=== PATIENT | male | born 1960 ===

== ENCOUNTER 2023-06-14 08:11 | Outpatient (AMB) | payer OTHER, SELFPAY ==
--- NOTE | 2023-06-14 08:32 | MHC.PC.OV ---
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: No Accompanied by: Self / Same As Patient Allergies duloxetine [Cymbalta] Allergy (Unknown, Verified 06/14/23 08:35) suicidal ideation metformin Allergy (Unknown, Verified 06/14/23 08:35) rash Tobacco use date assessed: 09/06/22 Dental Screening Dental Screen Date: 06/14/23 Did you have a dental visit in the last 12 months?: No Did you have a dental problem in the last 6 months where you did not have access to dental care?: No Was dental information given to patient?: Patient has dentist HPI 3 month f/u HPI Details 62-year-old obese male with uncontrolled diabetes mellitus hypertension hypercholesterolemia hypothyroidism last seen in February 2023. Patient is up-to-date with colonoscopy. Patient did have blood work done May 2023 with creatinine at 1.3 normal blood sugar here liver numbers are normal LDL of 81 triglyceride of 227 normal PSa normal thyroid with normal blood count. Patient also has followed up with urology for hypogonadism and erectile dysfunction placed on testosterone IM every 2 weeks. patient underwent distal transverse colon segmental resection last month for a large tubular adenoma with high-grade dysplasia in August 2022 patient also was given sildenafil. January 2023 hemoglobin A1c of 6.8 PFSH Medical History (Updated 06/14/23 @ 09:10 by Cruz Yi MD) Adenoma of left adrenal gland Tubular adenoma of colon Upper respiratory infection Colon cancer screening Obesity (BMI 30-39.9) Fatty liver Diabetic neuropathy Hypothyroid Osteoarthritis of knee Hypogonadism Hypercholesterolemia Hypertension Type 2 diabetes mellitus with hyperglycemia Surgical History History of arthroplasty History of surgical removal of meniscus of knee History of thyroidectomy Family History (Updated 06/14/23 @ 08:36 by DANELLE Rivera) Father Myocardial infarction Mother Cancer of lymphatic and hematopoietic tissue Daughter In good health Sister In good health Brother In good health Myocardial infarction Paternal Grandfather Myocardial infarction Social History Housing: House Alcohol intake: current Alcohol intake frequency: holidays/special occasions only Patient Tobacco Use Status: Never used Tobacco e-Cigarette/Vaping Use: Never Used Second Hand Smoke Exposure: No service: No Current occupational status: employed Current occupational exposures/hazards: No Cognitive needs: No Hearing needs: No Vision needs: Yes Questionnaire Thrive Questionnaire Date Thrive assessed: 09/28/22 TANIA-7 AMB Questionnaire TANIA-7 Date TANIA - 7 assessed: 02/26/23 Source: Developed by Drs. Hubert Hernandez, Kay Pitts, Kirk Noel and colleagues, with an educational radha from [employer]. Physical exam (Primary Care) Vital Signs: Last Vital Signs Pulse 86 06/14/23 08:34 BP 112/80 06/14/23 08:34 Pulse Ox 96 06/14/23 08:34 Oxygen Delivery Method Room Air 06/14/23 08:34 BMI result Body Mass Index 35.2 Tobacco/Smoking Status: Tobacco use Status Tobacco use date assessed 09/06/22 06/14/23 08:32 Patient Tobacco Use Status Never used Tobacco 06/14/23 08:32 Tobacco use type 06/14/23 08:39 e-Cigarette/Vaping Use Never Used 06/14/23 08:32 Thrive Assessment: Date of Thrive Assessment Date Thrive assessed 09/28/22 06/14/23 08:32 Const General: alert; No acute distress Eyes Conjunctivae: conjunctivae normal Resp Auscultation: clear to auscultation bilaterally Cardio Rate: regular rate Rhythm: regular rhythm GI Inspection: Yes normal to inspection Extrem General: Yes normal to inspection and No edema Results AMB Hemoglobin A1c AMB Hemoglobin A1c 6.9 % Last Edit by DANELLE Rivera on 06/14/23 08:45 Results Reviewed Results Reviewed: Laboratory Last Values Hgb A1c (Clinic) 6.9 % (4.0-6.0) H 06/14/23 08:32 Assessment and Plan Assessment & Plan (1) Type 2 diabetes mellitus with hyperglycemia: Comment: [facility] 11/2022 Code(s): E11.65 - Type 2 diabetes mellitus with hyperglycemia Qualifiers: Diabetes mellitus care home insulin use: without care home use Qualified Code(s): E11.65 - Type 2 diabetes mellitus with hyperglycemia Plan: Decrease the amount of carbohydrate intake, pasta, bread, rice and potatoes are all sugar and that is aside from all the sweet stuff, remember that fruits are good but they are Sweet also. Hemoglobin A1c goal of less than 6.5 patient takes glipizide 10 mg twice a day Trulicity at 1.5 mg once a week and Jardiance 25 mg once a day (2) Hypertension: Code(s): I10 - Essential (primary) hypertension Qualifiers: Hypertension type: essential hypertension Qualified Code(s): I10 - Essential (primary) hypertension Plan: Continue with blood pressure medication. Decrease salt intake and exercise patient is on amlodipine 5 mg once a day lisinopril 30 mg once a day and metoprolol 25 mg once a day (3) Hypercholesterolemia: Code(s): E78.00 - Pure hypercholesterolemia, unspecified Plan: Avoid fried foods, chicken skin, eggs, butter margarine, pastries and meat. Be it pork or beef they have a lot of cholesterol LDL goal of less than 100 and triglyceride of less than 150. Patient on rosuvastatin 20 mg once a day and fenofibrate 145 mg once a day (4) Tubular adenoma of colon: Comment: June 2022 [facility], high grade dysplasia August 2022Unresectable splenic flexure polyp tubular adenoma with high-grade dysplasia status post laparoscopic assisted segmental colectomy with primary colocolonic anastomosis 09/12/2022 Code(s): D12.6 - Benign neoplasm of colon, unspecified Plan: colon test 09/2022 (5) Obesity (BMI 30-39.9): Code(s): E66.9 - Obesity, unspecified Plan: Diet and exercise (6) Hypothyroid: Comment: Thyroidectomy nodule 2018 no cancer Code(s): E03.9 - Hypothyroidism, unspecified Qualifiers: Hypothyroidism type: acquired Qualified Code(s): E03.9 - Hypothyroidism, unspecified Plan: Continue with thyroid medication March 2023 last blood (7) Hypogonadism: Plan: Patient follows up with urology placed on testosterone IM (8) Erectile dysfunction: Code(s): N52.9 - Male erectile dysfunction, unspecified Plan: Follows up with urology placed on sildenafil Orders: Orders AMB Hemoglobin A1c Today E11.65 - Type 2 diabetes mellitus with hyperglycemia Medications: New dapagliflozin propanediol (Farxiga) 10 mg PO DAILY 90 tabs 3RF E11.65 - Type 2 diabetes mellitus with hyperglycemia Changed From dulaglutide (Trulicity) 1.5 mg (0.5 mL) subcut QWEEK 6 mL 3RF E11.65 - Type 2 diabetes mellitus with hyperglycemia To dulaglutide 3 mg (0.5 mL) subcut QWEEK 30 days 2.5 mL 3RF E11.65 - Type 2 diabetes mellitus with hyperglycemia Discontinued empagliflozin Discontinued Reason: Insurance Denied 25 mg PO DAILY 90 days 90 tabs 2RF E11.65 - Type 2 diabetes mellitus with hyperglycemia Coding Level of Care Code Est Pt Level 4 (80907) Diagnoses Type 2 diabetes mellitus with hyperglycemia, without long-term current use of insulin E11.65 Diabetes mellitus care home insulin use: without watermelon inspector use Essential hypertension I10 Hypertension type: essential hypertension Hypercholesterolemia E78.00 Tubular adenoma of colon D12.6 Obesity (BMI 30-39.9) E66.9 Acquired hypothyroidism E03.9 Hypothyroidism type: acquired Hypogonadism Erectile dysfunction N52.9
[2023-06-14 08:34] VITALS: BP 112/80; PULSE 86; O2SAT 96; BMI 35.2
== END 2023-06-14 09:17 | disposition home or self-care (01) ==
PROVIDERS: PCP Internal Medicine; Visit Provider Internal Medicine
DX: E11.65 Type 2 diabetes mellitus with hyperglycemia (principal); I10 Essential (primary) hypertension; E78.00 Pure hypercholesterolemia, unspecified; D12.6 Benign neoplasm of colon, unspecified; E66.9 Obesity, unspecified; E03.9 Hypothyroidism, unspecified; N52.9 Male erectile dysfunction, unspecified; Z68.35 Body mass index [BMI] 35.0-35.9, adult
CPT/HCPCS: 83036; 99214

== ENCOUNTER → 2023-09-14 11:09 | Outpatient (BNV) | payer OTHER, SELFPAY | PROVIDERS: PCP Internal Medicine; Visit Provider Internal Medicine Medical Oncology | DX: D75.1 Secondary polycythemia (principal) | CPT/HCPCS: 99204; 99213 ==

== ENCOUNTER 2023-09-17 08:04 | Outpatient (REF) | payer OTHER, SELFPAY | END 2023-09-17 08:05 | disposition home or self-care (01) | LOC: HO.BBR 08:04 | PROVIDERS: Visit Provider Internal Medicine Medical Oncology | DX: D75.1 Secondary polycythemia (principal) | CPT/HCPCS: 85018; 99195 ==

== ENCOUNTER 2023-09-18 12:36 | Outpatient (AMB) | payer OTHER, SELFPAY ==
[2023-09-18 12:38] VITALS: BP 130/90; PULSE 81; O2SAT 96; BMI 34.9
--- NOTE | 2023-09-18 12:38 | A.OFFPC_ITS ---
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: No Allergies duloxetine [Cymbalta] Allergy (Unknown, Verified 09/18/23 12:46) suicidal ideation metformin Allergy (Unknown, Verified 09/18/23 12:46) rash Medication List - Last Reconciled 09/18/23 by Cruz Yi MD amlodipine 5 mg PO DAILY 90 days cyanocobalamin (vitamin B-12) 1,000 mcg PO DAILY dapagliflozin propanediol (Farxiga) 10 mg PO DAILY dulaglutide 3 mg (0.5 mL) subcut QWEEK 30 days fenofibrate nanocrystallized 145 mg PO DAILY flash glucose scanning reader (MicroVisionStyle Yoselin 14 Day [place]) As directed flash glucose sensor (FreeStyle Yoselin 14 Day Sensor kit) As directed fluticasone propionate 50 mcg/actuation 2 sprays intranasal DAILY glipizide 10 mg PO BID levothyroxine (Synthroid) 137 mcg PO DAILY lisinopril 30 mg PO BID 90 days metoprolol succinate ER 25 mg PO DAILY 90 days rosuvastatin (Crestor) 20 mg PO DAILY testosterone cypionate 200 mg IM Q2W Tobacco use date assessed: 09/18/23 Fall risk assessment: No Falls in past year Last assessed Fall Risk: 09/18/23 Dental Screening Dental Screen Date: 09/18/23 HPI Annual Exam HPI Details 63-year-old obese male with diabetes shannon litus hypertension hypercholesterolemia hypothyroidism hypogonadism coming in for physical exam. Last seen in May 2023. Patient has erythrocytosis and follows up with Hematology-Oncology secondary polycythemia most likely from the hormone does go to the blood bank for therapeutic phlebotomy.. Hematology oncology notes workup being done advised aspirin for antiplatelet. EGD 10/22/2023, eye exam 11/2023 [facility]. LAB work 05/2023 [facility] Medical History (Updated 09/14/23 @ 11:55 by Marilou Ambrocio MD) Adenoma of left adrenal gland Tubular adenoma of colon Upper respiratory infection Colon cancer screening Obesity (BMI 30-39.9) Fatty liver Diabetic neuropathy Hypothyroid Osteoarthritis of knee Hypogonadism Hypercholesterolemia Hypertension Type 2 diabetes mellitus with hyperglycemia Surgical History History of arthroplasty History of surgical removal of meniscus of knee History of thyroidectomy Family History (Updated 09/14/23 @ 11:16 by Joanie Baez) Father Myocardial infarction Melanoma Mother Cancer of lymphatic and hematopoietic tissue Daughter In good health Sister In good health Brother In good health Myocardial infarction Paternal Grandfather Myocardial infarction Social History (Updated 09/18/23 @ 13:10 by Cruz Yi MD) Household Members: Family Housing: House Alcohol intake: current Alcohol intake frequency: holidays/special occasions only Comment: once a year 1 glass Patient Tobacco Use Status: Never used Tobacco e-Cigarette/Vaping Use: Never Used Second Hand Smoke Exposure: No service: Yes Current occupational status: employed Current occupational exposures/hazards: No Cognitive needs: No Hearing needs: No Vision needs: Yes Questionnaire PHQ-9 Over the last 2 weeks, how often have you been bothered by any of the following problems? 1. Little interest or pleasure in doing things: not at all 2. Feeling down, depressed, or hopeless: not at all 3. Trouble falling or staying asleep, or sleeping too much: not at all 4. Feeling tired or having little energy: not at all 5. Poor appetite or overeating: not at all 6. Feeling bad about yourself - or that you are a failure or have let yourself or your family down: not at all 7. Trouble concentrating on things, such as reading the newspaper or watching television: not at all 8. Moving or speaking so slowly that other people could have noticed. Or the opposite - being so fidgety or restless that you have been moving around a lot more than usual: not at all 9. Thoughts that you would be better off or of hurting yourself in some way: not at all Total score: 0 Depression Screening Interpretation: Negative Depression Screening Done: Yes Source: Developed by Drs. Hubert Hernandez, Kay Pitts, Kirk Noel and colleagues, with an educational radha from [email or web address]. Thrive Questionnaire Date Thrive assessed: 09/18/23 TANIA-7 AMB Questionnaire TANIA-7 Date TANIA - 7 assessed: 09/18/23 Feeling nervous, anxious, or on edge: 0 = Not at all Not being able to stop or control worryin = Not at all Worrying too much about different things: 0 = Not at all Trouble relaxin = Not at all Being so restless that it is hard to sit still: 0 = Not at all Becoming easily annoyed or irritable: 0 = Not at all Feeling afraid as if something awful might happen: 0 = Not at all Total TANIA-7 score (0-4 normal; 5-9 mild; 10-14 moderate; 15-21 severe): 0 Source: Developed by Drs. Hubert Hernandez, Kay Pitts, Kirk Noel and colleagues, with an educational radha from [email or web address]. Review of Systems Const Denies poor appetite and Denies weakness Eyes Denies no additional complaints ENT Reports Normal hearing present, Denies dizziness, Denies nasal congestion, Denies tinnitus and Denies sore throat Card Denies chest pain, Denies syncope, Denies rapid heart rate and Denies dyspnea Resp Denies cough and Denies dyspnea GI Denies change in stool character, Reports constipation, Denies diarrhea, Denies nausea and Denies vomiting Denies dysuria and Denies urinary frequency Neuro Reports Normal hearing present, Denies confusion, Denies dizziness, Denies syncope and Denies weakness Psych Denies confusion Physical exam (Primary Care) Vital Signs: Last Vital Signs Pulse 81 09/18/23 12:38 BP 130/90 H 09/18/23 12:38 Pulse Ox 96 09/18/23 12:38 Oxygen Delivery Method Room Air 09/18/23 12:38 BMI result Body Mass Index 34.9 Tobacco/Smoking Status: Tobacco use Status Tobacco use date assessed 09/18/23 09/18/23 12:39 Patient Tobacco Use Status Never used Tobacco 09/18/23 13:10 Tobacco use type 06/14/23 09:17 e-Cigarette/Vaping Use Never Used 09/18/23 13:10 PHQ-9: PHQ-9 Score PHQ-9: Total score 0 09/18/23 13:01 Depression Screening Interpretation: Negative Thrive Assessment: Date of Thrive Assessment Date Thrive assessed 09/18/23 09/18/23 12:39 Const General: No confusion Orientation/consciousness: No confusion HENMT Head: Yes normocephalic Ears: external ears normal and TM's normal bilaterally Face and sinus: Yes normal facial exam Mouth: moist mucous membranes Throat: Yes tonsils normal Eyes Conjunctivae: conjunctivae normal Pupils: Equal, round and reactive pupils present and Pupil accommodation reflex normal Direct Ophthalmoscopy: normal light reflex Neck Neck: No lymphadenopathy Thyroid: Thyroid normal Chest Chest palpation & inspection: normal inspection of the chest Resp Effort & Inspection: normal respiratory effort and no audible wheezes Auscultation: clear to auscultation bilaterally, no crackles, no wheezes and lung sounds not diminished Cardio Rate: regular rate Rhythm: regular rhythm Peripheral pulses: radial pulses present and dorsalis pedis present GI Other: faint guiac positive prostate N, pedal pulse N and pin prick areas of neuropathy Palpation (GI): no masses Auscultation: normal bowel sounds and normoactive bowel sounds Male General Exam: Yes normal external exam Skin General skin exam: no rashes or lesions noted Rashes: no rashes Neuro General: No confusion Cranial nerves: Yes Equal, round and reactive pupils present and Yes Normal hearing present Cognition (Neuro): normal cognition Gait exam (Neuro): Normal gait present Motor exam (neuro): 5/5 motor strength present throughout Deep tendon reflexes (DTR's): Right brachioradialis reflex intensity grade: 2+, Left brachioradialis reflex intensity grade: 2+, Right patellar reflex intensity grade: 2+ and Left patellar reflex intensity grade: 2+ Extrem General: No edema Results AMB Hemoglobin A1c AMB Hemoglobin A1c 7.5 % Last Edit by DANELLE Antonio on 09/18/23 12:53 Results Reviewed Results Reviewed: Laboratory Last Values Hgb A1c (Clinic) 7.5 % (4.0-6.0) H 09/18/23 12:40 Assessment and Plan Assessment & Plan (1) Annual physical exam: Code(s): Z00.00 - Encounter for general adult medical examination without abnormal findings (2) Type 2 diabetes mellitus with hyperglycemia: Comment: [facility] 11/2022 Code(s): E11.65 - Type 2 diabetes mellitus with hyperglycemia Qualifiers: Diabetes mellitus 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 Hemoglobin A1c goal of less than 6.5. Patient on Trulicity glipizide and Farxiga. Problem of elevated A1c still, discussed with the patient that we can try changing the Trulicity to Mounjaro to see if it will be more effective in lowering down the hemoglobin A1c.. (3) Hypertension: Code(s): I10 - Essential (primary) hypertension Qualifiers: Hypertension type: essential hypertension Qualified Code(s): I10 - Essential (primary) hypertension Plan: Continue with blood pressure medication. Decrease salt intake and exercise lisinopril 30 mg once a day metoprolol 25 mg once a day amlodipine 5 mg once a day. BP high today (4) Hypercholesterolemia: Code(s): E78.00 - Pure hypercholesterolemia, unspecified Plan: Avoid fried foods, chicken skin, eggs, butter margarine, pastries and meat. Be it pork or beef they have a lot of cholesterol LDL goal of less than 100 and triglyceride of less than 150 patient on fenofibrate 145 mg once a day and rosuvastatin 20 mg once a day (5) Hypothyroid: Comment: Thyroidectomy nodule 2018 no cancer Code(s): E03.9 - Hypothyroidism, unspecified Qualifiers: Hypothyroidism type: acquired Qualified Code(s): E03.9 - Hypothyroidism, unspecified Plan: Continue with thyroid medication (6) Obesity (BMI 30-39.9): Code(s): E66.9 - Obesity, unspecified Plan: Diet and exercise (7) Erythrocytosis: Comment: Secondary to hormone therapy Code(s): D75.1 - Secondary polycythemia Plan: Patient sees Hematology Oncology and having therapeutic phlebotomy (8) Hypogonadism: Plan: On testosterone Orders: Orders AMB Hemoglobin A1c Today E11.65 - Type 2 diabetes mellitus with hyperglycemia Medications: New tirzepatide (Mounjaro) 5 mg (0.5 mL) subcut QWEEK 2 mL 1RF E11.65 - Type 2 diabetes mellitus with hyperglycemia Discontinued dulaglutide Discontinued Reason: Doctor's Order 3 mg (0.5 mL) subcut QWEEK 30 days 2.5 mL 3RF E11.65 - Type 2 diabetes mellitus with hyperglycemia Coding Level of Care Code Est Pt Prev Care 40-64y(49386) Diagnoses Annual physical exam Z00.00 Type 2 diabetes mellitus with hyperglycemia, without long-term current use of insulin E11.65 Diabetes mellitus group home insulin use: without group home use Essential hypertension I10 Hypertension type: essential hypertension Hypercholesterolemia E78.00 Acquired hypothyroidism E03.9 Hypothyroidism type: acquired Obesity (BMI 30-39.9) E66.9 Erythrocytosis D75.1 Hypogonadism
== END 2023-09-18 13:34 | disposition home or self-care (01) ==
PROVIDERS: Visit Provider Internal Medicine
DX: Z00.00 Encounter for general adult medical examination without abnormal findings (principal); E11.65 Type 2 diabetes mellitus with hyperglycemia; I10 Essential (primary) hypertension; E78.00 Pure hypercholesterolemia, unspecified; E03.9 Hypothyroidism, unspecified; D75.1 Secondary polycythemia
CPT/HCPCS: 83036; 99396

== ENCOUNTER 2023-12-17 07:58 | Outpatient (REF) | payer OTHER, SELFPAY | END 2023-12-17 07:59 | disposition home or self-care (01) | LOC: HO.BBR 07:58 | PROVIDERS: PCP Internal Medicine; Visit Provider Internal Medicine Medical Oncology | DX: D75.1 Secondary polycythemia (principal) | CPT/HCPCS: 85018; 99195 ==

== ENCOUNTER 2023-12-25 08:19 | Outpatient (AMB) | payer OTHER, SELFPAY ==
[2023-12-25 08:30] VITALS: BP 128/80; PULSE 77; O2SAT 98; BMI 33.6
--- NOTE | 2023-12-25 08:30 | MHC.PC.OV ---
Vital Signs 12/25/23 08:30 Height 5 ft 10 in Weight 234 lb BMI 33.6 BP 128/80 Blood Pressure Location Lt brachial Position Standing Pulse 77 Pulse Source Pulse Oximeter Pulse Oximetry (%) 98 Oxygen Delivery Method Room Air Intake Visit Reasons: dm Allergies duloxetine [Cymbalta] Allergy (Unknown, Verified 12/25/23 08:31) suicidal ideation metformin Allergy (Unknown, Verified 12/25/23 08:31) rash Tobacco use date assessed: 09/18/23 Fall risk assessment: No Falls in past year Last assessed Fall Risk: 12/25/23 Dental Screening Dental Screen Date: 09/18/23 HPI dm HPI Details 63-year-old obese male with controlled diabetes mellitus hypertension hypercholesterolemia hypothyroidism coming in for follow-up. Last seen in August 2023 for physical exam. Patient is up-to-date with colonoscopy June 2022 does have erythrocytosis having therapeutic phlebotomy patient has hypogonadism and on testosterone injections. And was advised to take aspirin baby. Patient is up-to-date with eye exam October 2023 no retinopathy has early cataract in October 2023 patient had home sleep study showing moderate obstructive sleep apnea with an AHI of 26.1 advised auto PAP 10-20 cm water. Patient also has seen Urology testosterone cypionate 200 milligrams/cc IM 1 cc every 2 weeks. LDL 80 05/27/2023. colon test coming this year. [facility] Medical History (Updated 12/25/23 @ 08:59 by Cruz Yi MD) Adenoma of left adrenal gland Tubular adenoma of colon Upper respiratory infection Colon cancer screening Obesity (BMI 30-39.9) Fatty liver Diabetic neuropathy Hypothyroid Osteoarthritis of knee Hypogonadism Hypercholesterolemia Hypertension Type 2 diabetes mellitus with hyperglycemia Surgical History History of arthroplasty History of surgical removal of meniscus of knee History of thyroidectomy Family History Father Myocardial infarction Melanoma Mother Cancer of lymphatic and hematopoietic tissue Daughter In good health Sister In good health Brother In good health Myocardial infarction Paternal Grandfather Myocardial infarction Social History Household Members: Family Housing: House Alcohol intake: current Alcohol intake frequency: holidays/special occasions only Comment: once a year 1 glass Patient Tobacco Use Status: Never used Tobacco e-Cigarette/Vaping Use: Never Used Second Hand Smoke Exposure: No service: Yes Current occupational status: employed Current occupational exposures/hazards: No Cognitive needs: No Hearing needs: No Vision needs: Yes Questionnaire PHQ-9 Over the last 2 weeks, how often have you been bothered by any of the following problems? 1. Little interest or pleasure in doing things: not at all 2. Feeling down, depressed, or hopeless: not at all 3. Trouble falling or staying asleep, or sleeping too much: not at all 4. Feeling tired or having little energy: not at all 5. Poor appetite or overeating: not at all 6. Feeling bad about yourself - or that you are a failure or have let yourself or your family down: not at all 7. Trouble concentrating on things, such as reading the newspaper or watching television: not at all 8. Moving or speaking so slowly that other people could have noticed. Or the opposite - being so fidgety or restless that you have been moving around a lot more than usual: not at all 9. Thoughts that you would be better off or of hurting yourself in some way: not at all Total score: 0 Depression Screening Interpretation: Negative Depression Screening Done: Yes Source: Developed by Drs. Hubert Hernandez, Kirk Brooks and colleagues, with an educational radha from [employer]. Thrive Questionnaire Date Thrive assessed: 09/18/23 AUDIT C Alcohol Use Questionnaire (AUDIT-C) 1. How often do you have a drink containing alcohol?: Never 3. How often do you have six or more drinks on one occasion?: Never Total Score: 0 TANIA-7 AMB Questionnaire TANIA-7 Date TANIA - 7 assessed: 09/18/23 Source: Developed by Kay Kilgore Kurt Kroenke and colleagues, with an educational radha from [employer]. Physical exam (Primary Care) Vital Signs: Last Vital Signs Pulse 77 12/25/23 08:30 BP 128/80 12/25/23 08:30 Pulse Ox 98 12/25/23 08:30 Oxygen Delivery Method Room Air 12/25/23 08:30 BMI result Body Mass Index 33.6 Tobacco/Smoking Status: Tobacco use Status Tobacco use date assessed 09/18/23 12/25/23 08:33 Patient Tobacco Use Status Never used Tobacco 12/25/23 08:33 Tobacco use type 06/14/23 09:17 e-Cigarette/Vaping Use Never Used 12/25/23 08:33 PHQ-9: PHQ-9 Score PHQ-9: Total score 0 12/25/23 08:50 Depression Screening Interpretation: Negative Thrive Assessment: Date of Thrive Assessment Date Thrive assessed 09/18/23 12/25/23 08:33 Const General: alert; No acute distress Eyes Conjunctivae: conjunctivae normal Resp Auscultation: clear to auscultation bilaterally Cardio Rate: regular rate Rhythm: regular rhythm GI Inspection: Yes normal to inspection Extrem General: Yes normal to inspection and No edema Results AMB Hemoglobin A1c AMB Hemoglobin A1c 6.2 % Last Edit by Kymberly Mariscal CMA on 12/25/23 08:50 Results Reviewed Results Reviewed: Laboratory Last Values Hgb A1c (Clinic) 6.2 % (4.0-6.0) H 12/25/23 08:33 Assessment and Plan Assessment & Plan (1) Moderate obstructive sleep apnea: Comment: Sleep study done 11/01/2023 results showing obstructive sleep apnea moderate with AHI of 21.1 advised auto CPAP 10-20 cm water Code(s): G47.33 - Obstructive sleep apnea (adult) (pediatric) Plan: Continue to use the CPAP more than 4 hours a night and benefits from this. (2) Erythrocytosis: Comment: Secondary to hormone therapy Code(s): D75.1 - Secondary polycythemia Plan: Patient is being followed by hematology oncology and has therapeutic phlebotomy. 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 Hemoglobin A1c goal of less than 6.5. Patient on Farxiga 10 mg once a day Trulicity 3 mg once a week glipizide 10 mg twice a day (5) Hypertension: Code(s): I10 - Essential (primary) hypertension Qualifiers: Hypertension type: essential hypertension Qualified Code(s): I10 - Essential (primary) hypertension Plan: Continue with blood pressure medication. Decrease salt intake and exercise takes lisinopril 30 mg twice a day metoprolol 25 mg once a day and amlodipine 5 mg once a day (6) Hypercholesterolemia: Comment: May 2023 LDL is 81 Code(s): E78.00 - Pure hypercholesterolemia, unspecified Plan: Avoid fried foods, chicken skin, eggs, butter margarine, pastries and meat. Be it pork or beef they have a lot of cholesterol LDL goal of less than 100 and triglyceride of less than 150. May 2023 last blood work (7) Hypothyroid: Comment: Thyroidectomy nodule 2018 no cancer Code(s): E03.9 - Hypothyroidism, unspecified Qualifiers: Hypothyroidism type: acquired Qualified Code(s): E03.9 - Hypothyroidism, unspecified Plan: Continue with thyroid medication (8) Obesity (BMI 30-39.9): Code(s): E66.9 - Obesity, unspecified Plan: Diet and exercise Orders: Orders AMB Hemoglobin A1c Today Z13.9 - Encounter for screening, unspecified Medications: New aspirin (Adult Low Dose Aspirin) 81 mg PO DAILY 30 tabs 0RF Refilled fluticasone propionate 50 mcg/actuation administer into each nostril 2 sprays intranasal DAILY 16 grams 11RF Coding Level of Care Code Est Pt Level 4 (35825) Diagnoses Moderate obstructive sleep apnea G47.33 Erythrocytosis D75.1 Hypogonadism Type 2 diabetes mellitus with hyperglycemia, without long-term current use of insulin E11.65 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
== END 2023-12-25 09:13 | disposition home or self-care (01) ==
PROVIDERS: PCP Internal Medicine; Visit Provider Internal Medicine
DX: E11.65 Type 2 diabetes mellitus with hyperglycemia (principal); G47.33 Obstructive sleep apnea (adult) (pediatric); D75.1 Secondary polycythemia; I10 Essential (primary) hypertension; E78.00 Pure hypercholesterolemia, unspecified; E03.9 Hypothyroidism, unspecified
CPT/HCPCS: 83036; 99214

== ENCOUNTER 2024-02-12 14:59 | Outpatient (AMB) | payer OTHER, SELFPAY ==
--- NOTE | 2024-02-12 15:00 | A.OFFPC_ITS ---
Vital Signs 02/12/24 15:09 Height 5 ft 10 in Weight 230 lb BMI 33.0 BP 122/86 Blood Pressure Location Lt brachial Position Sitting Pulse 98 Pulse Source Pulse Oximeter Pulse Oximetry (%) 95 Oxygen Delivery Method Room Air Intake Visit Reasons: Cold Symptoms Intake Note: Dr. Yi's pt here for possible sinus infection for the past week. Mainstreaming Facilitator Required: No Accompanied by: Self / Same As Patient Allergies duloxetine [Cymbalta] Allergy (Unknown, Verified 02/12/24 15:11) suicidal ideation metformin Allergy (Unknown, Verified 02/12/24 15:11) rash Tobacco use date assessed: 09/18/23 Fall risk assessment: No Falls in past year Last assessed Fall Risk: 02/12/24 Dental Screening Dental Screen Date: 09/18/23 HPI Cold Symptoms HPI Details Patient is a 63-year-old male here today for a problem visit. Patient's past medical history significant for obstructive sleep apnea,. Type 2 diabetes, hypertension, hyperlipidemia and hypothyroidism. He reports he has been having sinus pressure and right ear pain over the last 10 days. Has been using allergy medication without much relief. He originally thought it was his allergies though has been having more greenish nasal discharge. [facility] Medical History Adenoma of left adrenal gland Tubular adenoma of colon Upper respiratory infection Colon cancer screening Obesity (BMI 30-39.9) Fatty liver Diabetic neuropathy Hypothyroid Osteoarthritis of knee Hypogonadism Hypercholesterolemia Hypertension Type 2 diabetes mellitus with hyperglycemia Surgical History History of arthroplasty History of surgical removal of meniscus of knee History of thyroidectomy Family History Father Myocardial infarction Melanoma Mother Cancer of lymphatic and hematopoietic tissue Daughter In good health Sister In good health Brother In good health Myocardial infarction Paternal Grandfather Myocardial infarction Social History Household Members: Family Housing: House Alcohol intake: current Alcohol intake frequency: holidays/special occasions only Comment: once a year 1 glass Patient Tobacco Use Status: Never used Tobacco e-Cigarette/Vaping Use: Never Used Second Hand Smoke Exposure: No service: Yes Current occupational status: employed Current occupational exposures/hazards: No Cognitive needs: No Hearing needs: No Vision needs: Yes Questionnaire Thrive Questionnaire Date Thrive assessed: 09/18/23 TANIA-7 AMB Questionnaire TANIA-7 Date TANIA - 7 assessed: 09/18/23 Source: Developed by Drs. Hubert Hernandez, Kay Pitts, Kirk Noel and colleagues, with an educational radha from [employer]. Review of Systems Const Denies headache(s) Eyes Denies loss of vision ENT Denies vertigo, Denies dizziness, Denies headache(s) and Denies sore throat Card Denies chest pain, Denies leg edema and Denies lightheadedness Resp Denies cough, Denies hemoptysis and Denies wheezing GI Denies abdominal pain, Denies melena, Denies constipation, Denies diarrhea and Denies vomiting Denies dysuria, Denies urinary frequency and Denies urinary urgency Musc Denies arthralgias, Denies joint swelling, Denies numbness and Denies tingling Neuro Denies Abnormal speech present, Denies behavioral changes, Denies vertigo, Den ies dizziness, Denies headache(s), Denies loss of vision, Denies memory loss, Denies numbness and Denies tingling Psych Denies anxiety, Denies behavioral changes, Denies depression, Denies memory loss and Denies panic attacks Vamshi/Lymph Denies easy bleeding and Denies easy bruising Aller/Immun Denies wheezing Physical exam (Primary Care) Tobacco/Smoking Status: Tobacco use Status Tobacco use date assessed 09/18/23 02/12/24 15:01 Patient Tobacco Use Status Never used Tobacco 02/12/24 15:01 Tobacco use type 06/14/23 09:17 e-Cigarette/Vaping Use Never Used 02/12/24 15:01 Thrive Assessment: Date of Thrive Assessment Date Thrive assessed 09/18/23 02/12/24 15:01 Const General: healthy appearing, no acute distress, alert and awake Nutritional Appearance: well nourished Orientation/consciousness: oriented to person, oriented to place and oriented to time HENMT Ears: TM's normal bilaterally General nose exam: Normal nasal mucous membranes and turbinates present Eyes Conjunctivae: conjunctivae normal Sclerae: sclerae normal Pupils: Equal, round and reactive pupils present Neck Neck: Yes no lymphadenopathy and Yes no JVD Thyroid: Thyroid normal Carotids: no bruits Resp Effort & Inspection: normal respiratory effort and not tachypneic Auscultation: no crackles, no rales, no rhonchi and no wheezes Cardio Rate: regular rate Rhythm: regular rhythm Heart sounds: no murmurs and normal S1 and S2 GI Palpation (GI): Soft to palpation, nontender, no hepatomegaly and no splenomegaly Auscultation: normal bowel sounds Skin General skin exam: no rashes or lesions noted and dry skin Neuro General: oriented to person, oriented to place and oriented to time Cranial nerves: Yes Equal, round and reactive pupils present Speech: No Abnormal speech present Gait exam (Neuro): Normal gait present Motor exam (neuro): no tremor noted Extrem Right upper extremity: full ROM Left upper extremity: full ROM Right lower extremity: full ROM; no edema Left lower extremity: full ROM; no edema Psych Mental Status: mental status grossly normal Speech and movement: Normal speech and movement present Affect: normal affect Attitude: cooperative Thought process: Normal thought process present Assessment and Plan Assessment & Plan (1) Sinus infection: Code(s): J32.9 - Chronic sinusitis, unspecified Qualifiers: Sinusitis location: frontal Chronicity: subacute Qualified Code(s): J01.10 - Acute frontal sinusitis, unspecified Plan: Patient's signs symptoms of sinus infection that has been lasting over the last 10 days.. Has tried [id number] allergy medication without much relief. Will supply patient with azithromycin Medications: New azithromycin For 250 mg dose pack: take 500 mg today (day 1), then 250 mg for 4 days (days 2-5) PO 6 tabs 0RF J01.10 - Acute frontal sinusitis, unspecified Coding Level of Care Code Est Pt Level 3 (27109) Diagnoses Subacute frontal sinusitis J01.10 Sinusitis location: frontal Chronicity: subacute
[2024-02-12 15:09] VITALS: BP 122/86; PULSE 98; O2SAT 95; BMI 33.0
== END 2024-02-12 15:20 | disposition home or self-care (01) ==
PROVIDERS: PCP Internal Medicine; Visit Provider Physician Assistant
DX: J01.10 Acute frontal sinusitis, unspecified (principal)
CPT/HCPCS: 99213

== ENCOUNTER 2024-03-17 08:04 | Outpatient (REF) | payer OTHER, SELFPAY | END 2024-03-17 08:05 | disposition home or self-care (01) | LOC: HO.BBR 08:04 | PROVIDERS: PCP Internal Medicine; Visit Provider Internal Medicine Medical Oncology | DX: E83.110 Hereditary hemochromatosis (principal) | CPT/HCPCS: 85014; 85018; 99195 ==

== ENCOUNTER 2024-05-02 08:15 | Outpatient (AMB) | payer OTHER, SELFPAY ==
--- NOTE | 2024-05-02 08:27 | MHC.PC.OV ---
Vital Signs 05/02/24 08:28 05/02/24 08:44 Height 5 ft 10 in Weight 232 lb 8 oz BMI 33.4 BP 140/80 H 130/90 H Blood Pressure Location Lt brachial Lt brachial Position Sitting Sitting Pulse 99 Pulse Source Pulse Oximeter Pulse Oximetry (%) 94 Oxygen Delivery Method Room Air Intake Visit Reasons: DM , DELANEY Intake Note: Patient is here to follow up on DM, DELANEY. 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 Patient has erythrocytosis most likely from the testosterone injections. Patient's colonoscopy is up-to-date 07/16/2022. Review of the notes neurology noted absence of ankle jerk. 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 This is compatible with a type of neuropathy seen in diabetes it does not show. We did receive the note also from 01/14/2024 colon test noted diverticulosis and hemorrhoids. [facility] Medical History (Updated 02/29/24 @ 18:11 by Cruz Yi MD) Adenoma of left adrenal gland Tubular adenoma of colon Upper respiratory infection Colon cancer screening Obesity (BMI 30-39.9) Fatty liver Diabetic neuropathy Hypothyroid Osteoarthritis of knee Hypogonadism Hypercholesterolemia Hypertension Type 2 diabetes mellitus with hyperglycemia Surgical History History of arthroplasty History of surgical removal of meniscus of knee History of thyroidectomy Family History Father Myocardial infarction Melanoma Mother Cancer of lymphatic and hematopoietic tissue Daughter In good health Sister In good health Brother In good health Myocardial infarction Paternal Grandfather Myocardial infarction Social History Household Members: Family Housing: House Alcohol intake: current Alcohol intake frequency: holidays/special occasions only Comment: once a year 1 glass Patient Tobacco Use Status: Never used Tobacco e-Cigarette/Vaping Use: Never Used Second Hand Smoke Exposure: No service: Yes Current occupational status: employed Current occupational exposures/hazards: No Cognitive needs: No Hearing needs: No Vision needs: Yes Questionnaire Thrive Questionnaire Date Thrive assessed: 09/18/23 TANIA-7 AMB Questionnaire TANIA-7 Date TANIA - 7 assessed: 09/18/23 Source: Developed by Drs. Hubert Hernandez, Kay Pitts, Kirk Noel and colleagues, with an educational radha from [employer]. Physical exam (Primary Care) Vital Signs: Last Vital Signs Pulse 99 05/02/24 08:28 BP 130/90 H 05/02/24 08:44 Pulse Ox 94 05/02/24 08:28 Oxygen Delivery Method Room Air 05/02/24 08:28 BMI result Body Mass Index 33.4 Tobacco/Smoking Status: Tobacco use Status Tobacco use date assessed 05/02/24 05/02/24 08:35 Patient Tobacco Use Status Never used Tobacco 05/02/24 08:35 Tobacco use type 06/14/23 09:17 e-Cigarette/Vaping Use Never Used 05/02/24 08:35 Thrive Assessment: Date of Thrive Assessment Date Thrive assessed 09/18/23 05/02/24 08:35 Const General: alert; No acute distress Eyes Conjunctivae: conjunctivae normal Resp Auscultation: clear to auscultation bilaterally Cardio Rate: regular rate Rhythm: regular rhythm GI Inspection: Yes normal to inspection Extrem General: Yes normal to inspection and No edema Results AMB Hemoglobin A1c AMB Hemoglobin A1c 7.1 % Last Edit by DANELLE Holbrook on 05/02/24 08:39 Results Reviewed Results Reviewed: Laboratory Last Values Hgb A1c (Clinic) 7.1 % (4.0-6.0) H 05/02/24 08:26 Assessment and Plan Assessment & Plan (1) Diabetic neuropathy: Comment: 02/2024Generalized sensory motor polyneuropathy with the both axonal and demyelinating elements. 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 Hemoglobin A1c goal of less than 6.5 presently on [facility] glipizide. (3) Hypertension: Code(s): I10 - Essential (primary) hypertension Qualifiers: Hypertension type: essential hypertension Qualified Code(s): I10 - Essential (primary) hypertension Plan: Continue with blood pressure medication. Decrease salt intake and exercise taking amlodipine 5 mg once a day lisinopril 30 mg once a day metoprolol 25 mg once a day (4) Hypercholesterolemia: Comment: May 2023 LDL is 81 Code(s): E78.00 - Pure hypercholesterolemia, unspecified Plan: Avoid fried foods, chicken skin, eggs, butter margarine, pastries and meat. Be it pork or beef they have a lot of cholesterol taking rosuvastatin 20 mg once a day. Discussed about getting blood work (5) Hypothyroid: Comment: Thyroidectomy nodule 2018 no cancer Code(s): E03.9 - Hypothyroidism, unspecified Qualifiers: Hypothyroidism type: acquired Qualified Code(s): E03.9 - Hypothyroidism, unspecified Plan: Continue with thyroid medication (6) Obesity (BMI 30-39.9): Code(s): E66.9 - Obesity, unspecified Plan: Diet and exercise (7) Moderate obstructive sleep apnea: Comment: Sleep study done 11/01/2023 results showing obstructive sleep apnea moderate with AHI of 21.1 advised auto CPAP 10-20 cm water Code(s): G47.33 - Obstructive sleep apnea (adult) (pediatric) Plan: Continue to use the CPAP more than 4 hours a night and benefits from this. Orders: Orders AMB Hemoglobin A1c Today E11.65 - Type 2 diabetes mellitus with hyperglycemia Medications: Refilled dulaglutide 3 mg (0.5 mL) subcut QWEEK 6.5 mL 3RF 90 days E11.65 - Type 2 diabetes mellitus with hyperglycemia Coding Level of Care Code Est Pt Level 4 (17856) Diagnoses Diabetic neuropathy E11.40 Type 2 diabetes mellitus with hyperglycemia, without long-term current use of insulin E11.65 Diabetes mellitus halfway insulin use: without halfway use Essential hypertension I10 Hypertension type: essential hypertension Hypercholesterolemia E78.00 Acquired hypothyroidism E03.9 Hypothyroidism type: acquired Obesity (BMI 30-39.9) E66.9 Moderate obstructive sleep apnea G47.33
[2024-05-02 08:28] VITALS: BP 140/80; PULSE 99; O2SAT 94; BMI 33.4
[2024-05-02 08:44] VITALS: BP 130/90
== END 2024-05-02 09:00 | disposition home or self-care (01) ==
PROVIDERS: PCP Internal Medicine; Visit Provider Internal Medicine
DX: E11.40 Type 2 diabetes mellitus with diabetic neuropathy, unspecified (principal); E11.65 Type 2 diabetes mellitus with hyperglycemia; I10 Essential (primary) hypertension; E78.00 Pure hypercholesterolemia, unspecified; E03.9 Hypothyroidism, unspecified; G47.33 Obstructive sleep apnea (adult) (pediatric)
CPT/HCPCS: 83036; 99214

== ENCOUNTER 2024-06-18 08:04 | Outpatient (REF) | payer OTHER, SELFPAY | END 2024-06-18 08:05 | disposition home or self-care (01) | LOC: HO.BBR 08:04 | PROVIDERS: PCP Internal Medicine; Visit Provider Internal Medicine Medical Oncology | DX: D75.1 Secondary polycythemia (principal) | CPT/HCPCS: 85014; 85018; 99195 ==

== ENCOUNTER 2024-08-15 08:12 | Outpatient (AMB) | payer OTHER, SELFPAY ==
--- NOTE | 2024-08-15 08:19 | MHC.PC.OV ---
Vital Signs 08/15/24 08:22 Height 5 ft 10 in Weight 232 lb 6 oz BMI 33.3 BP 120/80 Blood Pressure Location Lt brachial Position Sitting Pulse 90 Pulse Source Pulse Oximeter Pulse Oximetry (%) 98 Oxygen Delivery Method Room Air Intake Visit Reasons: dm Intake Note: Patient is here to follow up on DM. Quick Sketch Artist Required: No Entry Level Chemist: Not Required per policy Accompanied by: Self / Same As Patient Allergies duloxetine [Cymbalta] Allergy (Unknown, Verified 08/15/24 08:21) suicidal ideation metformin Allergy (Unknown, Verified 08/15/24 08:21) rash Tobacco use date assessed: 08/15/24 Fall risk assessment: No Falls in past year Last assessed Fall Risk: 08/15/24 Dental Screening Dental Screen Date: 09/18/23 HPI dm HPI Details The patient is a 64-year-old male presenting with a follow-up visit for management of diabetes, lipid levels, and other chronic conditions. The primary reason for this visit is to discuss his recent lab results and adjust his medication regimen as needed. The patient has a history of Type 2 Diabetes Mellitus, recently noted with an A1c rising to 7.7, following dietary indiscretions over . Previous A1c was 7.0. He reports using a CPAP device regularly for his diagnosed sleep apnea, and mentions his apnea hypopnea index (AHI) has improved. The diabetic neuropathy is currently managed but is a concern with future complications. His kidney function remains stable, despite the proteinuria seen with the urine mafufsl-hp-bqsbsfvjow ratio exceeding 30, a scenario partially attributed to diabetes. Blood pressure is well-regulated, aided by medications. There is no swelling noted in the legs. The patient is on lipid control therapy; however, the LDL cholesterol is not optimally maintained. The patient is currently on aspirin therapy. Thyroid function tests indicated a slightly elevated TSH of 4.7, above the desirable range of 0.3 to 4. The patient reports compliance with medications but requires refills and possible dosage adjustments for Trulicity. Hyperlipidemia is being monitored and requires lifestyle modifications to avoid high cholesterol-rich food. The patient?s BMI and physical activity were briefly touched upon, acknowledging lifestyle modifications are needed to facilitate weight management. [facility] Medical History (Updated 08/15/24 @ 08:50 by Cruz Yi MD) Adenoma of left adrenal gland Tubular adenoma of colon Upper respiratory infection Colon cancer screening Obesity (BMI 30-39.9) Fatty liver Diabetic neuropathy Hypothyroid Osteoarthritis of knee Hypogonadism Hypercholesterolemia Hypertension Type 2 diabetes mellitus with hyperglycemia Surgical History History of arthroplasty History of surgical removal of meniscus of knee History of thyroidectomy Family History Father Myocardial infarction Melanoma Mother Cancer of lymphatic and hematopoietic tissue Daughter In good health Sister In good health Brother In good health Myocardial infarction Paternal Grandfather Myocardial infarction Social History Household Members: Family Housing: House Alcohol intake: current Alcohol intake frequency: holidays/special occasions only Comment: once a year 1 glass Patient Tobacco Use Status: Never used Tobacco e-Cigarette/Vaping Use: Never Used Second Hand Smoke Exposure: No service: Yes Current occupational status: employed Current occupational exposures/hazards: No Cognitive needs: No Hearing needs: No Vision needs: Yes Questionnaire Thrive Questionnaire Date Thrive assessed: 09/18/23 TANIA-7 AMB Questionnaire TANIA-7 Date TANIA - 7 assessed: 09/18/23 Source: Developed by Drs. Hubert Hernandez, Kay Pitts, Kirk Noel and colleagues, with an educational radha from [employer]. Physical exam (Primary Care) Vital Signs: Last Vital Signs Pulse 90 08/15/24 08:22 BP 120/80 08/15/24 08:22 Pulse Ox 98 08/15/24 08:22 Oxygen Delivery Method Room Air 08/15/24 08:22 BMI result Body Mass Index 33.3 Tobacco/Smoking Status: Tobacco use Status Tobacco use date assessed 08/15/24 08/15/24 08:32 Patient Tobacco Use Status Never used Tobacco 08/15/24 08:20 Tobacco use type 06/14/23 09:17 e-Cigarette/Vaping Use Never Used 08/15/24 08:20 Thrive Assessment: Date of Thrive Assessment Date Thrive assessed 09/18/23 08/15/24 08:20 Const General: alert; No acute distress Eyes Conjunctivae: conjunctivae normal Resp Auscultation: clear to auscultation bilaterally Cardio Rate: regular rate Rhythm: regular rhythm GI Inspection: Yes normal to inspection Extrem General: Yes normal to inspection and No edema Results AMB Hemoglobin A1c AMB Hemoglobin A1c 7.2 % Last Edit by DANELLE Holbrook on 08/15/24 08:35 Results Reviewed Results Reviewed: Laboratory Last Values Hgb A1c (Clinic) 7.2 % (4.0-6.0) H 08/15/24 08:20 Coding Level of Care Code Est Pt Level 4 (49052) Complex EM visit Add On G2211 Diagnoses Type 2 diabetes mellitus with hyperglycemia, without long-term current use of insulin E11.65 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: without penitentiary use Essential hypertension I10 Hypertension type: essential hypertension Hypercholesterolemia E78.00 Acquired hypothyroidism E03.9 Hypothyroidism type: acquired Obesity (BMI 30-39.9) E66.9 Hypogonadism Moderate obstructive sleep apnea G47.33 Diabetic nephropathy associated with type 2 diabetes mellitus E11.21 Diabetes mellitus type: type 2 Assessment & Plan Assessment & Plan (1) Type 2 diabetes mellitus with hyperglycemia: Comment: [facility] 11/2022 Code(s): E11.65 - Type 2 diabetes mellitus with hyperglycemia Category: Medical Qualifiers: Diabetes mellitus penitentiary insulin use: without marine oil terminal superintendent use Qualified Code(s): E11.65 - Type 2 diabetes mellitus with hyperglycemia (2) Hypertension: Code(s): I10 - Essential (primary) hypertension Category: Medical Qualifiers: Hypertension type: essential hypertension Qualified Code(s): I10 - Essential (primary) hypertension (3) Hypercholesterolemia: Comment: May 2023 LDL is 81 Code(s): E78.00 - Pure hypercholesterolemia, unspecified Category: Medical (4) Hypothyroid: Comment: Thyroidectomy nodule 2018 no cancer Code(s): E03.9 - Hypothyroidism, unspecified Category: Medical Qualifiers: Hypothyroidism type: acquired Qualified Code(s): E03.9 - Hypothyroidism, unspecified (5) Obesity (BMI 30-39.9): Code(s): E66.9 - Obesity, unspecified Category: Medical (6) Hypogonadism: Category: Medical (7) Moderate obstructive sleep apnea: Comment: Sleep study done 11/01/2023 results showing obstructive sleep apnea moderate with AHI of 21.1 advised auto CPAP 10-20 cm water Code(s): G47.33 - Obstructive sleep apnea (adult) (pediatric) Category: Medical (8) Diabetic nephropathy: Code(s): E11.21 - Type 2 diabetes mellitus with diabetic nephropathy Category: Medical Qualifiers: Diabetes mellitus type: type 2 Qualified Code(s): E11.21 - Type 2 diabetes mellitus with diabetic nephropathy Plan 1. 5 mg pending prior authorization: - Continue CPAP therapy for sleep apnea; maintain compliance and consider periodic reassessment. - Continue current regimen for hypertension and monitor blood pressure. - Encourage reduction of bread and carbohydrate intake to assist with blood sugar management and cholesterol control. - Reassess LDL levels and adjust statin therapy as indicated, emphasizing dietary changes to lower cardiovascular risks. - Monitor proteinuria as a marker of renal function and continue surveillance for diabetic nephropathy. - Repeat thyroid function tests if clinically indicated due to mild TSH elevation, but no change in management currently. - Reinforce use of aspirin therapy given cardiovascular indications. - Address all current medications and arrange for necessary refills to be sent to the pharmacy. Orders: Orders AMB Hemoglobin A1c Today E11.65 - Type 2 diabetes mellitus with hyperglycemia Medications: Changed From dulaglutide 3 mg (0.5 mL) subcut QWEEK 90 days 6.5 mL 3RF E11.65 - Type 2 diabetes mellitus with hyperglycemia To dulaglutide 4.5 mg (0.5 mL) subcut QWEEK 6.5 mL 3RF 90 days E11.65 - Type 2 diabetes mellitus with hyperglycemia Refilled rosuvastatin (Crestor) 20 mg PO DAILY 90 tabs 3RF E78.00 - Pure hypercholesterolemia, unspecified amlodipine 5 mg PO DAILY 90 tabs 2RF 90 days I10 - Essential (primary) hypertension metoprolol succinate ER 25 mg PO DAILY 90 tabs 3RF 90 days I10 - Essential (primary) hypertension
[2024-08-15 08:22] VITALS: BP 120/80; PULSE 90; O2SAT 98; BMI 33.3
== END 2024-08-15 08:54 | disposition home or self-care (01) ==
PROVIDERS: PCP Internal Medicine; Visit Provider Internal Medicine
DX: E11.65 Type 2 diabetes mellitus with hyperglycemia (principal); E11.21 Type 2 diabetes mellitus with diabetic nephropathy; E66.9 Obesity, unspecified; Z68.33 Body mass index [BMI] 33.0-33.9, adult; I10 Essential (primary) hypertension; E78.00 Pure hypercholesterolemia, unspecified; E03.9 Hypothyroidism, unspecified; G47.33 Obstructive sleep apnea (adult) (pediatric)

== ENCOUNTER → 2024-08-15 08:12 | Outpatient (BNVA) | payer OTHER, SELFPAY | PROVIDERS: PCP Internal Medicine; Visit Provider Internal Medicine | DX: E11.65 Type 2 diabetes mellitus with hyperglycemia (principal); E11.21 Type 2 diabetes mellitus with diabetic nephropathy; I10 Essential (primary) hypertension; E78.00 Pure hypercholesterolemia, unspecified; E03.9 Hypothyroidism, unspecified; E66.9 Obesity, unspecified; E29.1 Testicular hypofunction; G47.33 Obstructive sleep apnea (adult) (pediatric); Z79.82 Long term (current) use of aspirin | CPT/HCPCS: 83036 ==

== ENCOUNTER → 2024-09-05 19:12 | Outpatient (BNV) | payer OTHER, SELFPAY ==
--- NOTE | 2024-09-05 19:12 | A.OFFVIS_ITS ---
Intake Visit Reasons: Amb Documentation Allergies duloxetine [Cymbalta] Allergy (Unknown, Verified 08/15/24 08:21) suicidal ideation metformin Allergy (Unknown, Verified 08/15/24 08:21) rash HPI HPI Amb Documentation: Details: 64-year-old with diabetes hypertension hypercholesterolemia hypothyroid diarrhea and nausea and vomiting. But patient has been coughing productive phlegm with mild fever [facility] Medical History (Updated 09/05/24 @ 19:15 by Cruz Yi MD) Adenoma of left adrenal gland Tubular adenoma of colon Upper respiratory infection Colon cancer screening Obesity (BMI 30-39.9) Fatty liver Diabetic neuropathy Hypothyroid Osteoarthritis of knee Hypogonadism Hypercholesterolemia Hypertension Type 2 diabetes mellitus with hyperglycemia Surgical History History of arthroplasty History of surgical removal of meniscus of knee History of thyroidectomy Family History Father Myocardial infarction Melanoma Mother Cancer of lymphatic and hematopoietic tissue Daughter In good health Sister In good health Brother In good health Myocardial infarction Paternal Grandfather Myocardial infarction Social History Household Members: Family Housing: House Alcohol intake: current Alcohol intake frequency: holidays/special occasions only Comment: once a year 1 glass Patient Tobacco Use Status: Never used Tobacco e-Cigarette/Vaping Use: Never Used Second Hand Smoke Exposure: No service: Yes Current occupational status: employed Current occupational exposures/hazards: No Cognitive needs: No Hearing needs: No Vision needs: Yes Telehealth Telehealth Telehealth Platform: Telephone Location of provider rendering services: practice address Location of patient: address on file Patient Identification confirmed using: Name, : Yes Telehealth method: voice only Patient verbally consented to treatment: Yes Patient verbally consented to billing insurance company: Yes Patient informed of any privacy concerns related to visit: Yes Minutes spent on Phone/Video with Pt.: 15 Assessment & Plan Assessment & Plan (1) Bronchitis: Code(s): J40 - Bronchitis, not specified as acute or chronic Category: Medical Plan: Antibiotics sent discussed the need to keep well hydrated to avoid getting dehydrated (2) Diarrhea: Code(s): R19.7 - Diarrhea, unspecified Category: Medical Plan: Advised to keep well hydrated with water and electrolytes Medications: New doxycycline hyclate 100 mg PO DAILY 14 caps 0RF J40 - Bronchitis, not specified as acute or chronic Coding Level of Care Code Tele Est Pt Level 3 (96108) Diagnoses Bronchitis J40 Diarrhea R19.7
== END ==
PROVIDERS: PCP Internal Medicine; Visit Provider Internal Medicine
DX: J40 Bronchitis, not specified as acute or chronic (principal); R19.7 Diarrhea, unspecified
CPT/HCPCS: 98013

== ENCOUNTER 2024-09-08 08:41 | Outpatient (REF) | payer OTHER, SELFPAY ==
--- NOTE | ~2024-09-08 | XR_ITS ---
EXAMINATION: XR CHEST CLINICAL INFORMATION: J40 - Bronchitis, not specified as acute or chronic COMPARISON: None available. TECHNIQUE: 2 views of the chest were obtained. FINDINGS: The lungs are hypoexpanded and clear of acute process. Heart size and pulmonary vascularity is normal. There is mild spondylosis of dorsal spine. XR/XR chest 2V IMPRESSION: Hypoexpanded lungs without acute process. Electronically signed by: Augustus Allen MD 09/10/2024 08:34 AM CARLENE
[2024-09-08 12:47] LABS: Basophils Percent Auto 0.4 % (0-2); Eosinophils Absolute Auto 0.1 X10*3/uL (0.0-0.4); Eosinophils Percent Auto 1.9 % (0-4); Hematocrit 48.5 % (42.0-52.0); Hemoglobin 15.8 g/dl (14.0-18.0); Imm Gran Abs Auto 0.02 X10*3/uL (0.00-0.03); Imm Gran Pct Auto 0.3 % (0.0-0.4); Lymphocytes Absolute Auto 2.4 X10*3/uL (1.2-4.9); Lymphocytes Percent Auto 31.8 % (20-40); MANUAL DIFF FLAG NO; Mean Corpuscular HGB Conc 32.6 g/dl (31.0-36.0); Mean Corpuscular Hemoglobin 27.5 pg (27.0-33.0); Mean Corpuscular Volume 84.3 fL (80.0-98.0); Monocytes Absolute Auto 0.6 X10*3/uL (0.1-1.2); Monocytes Percent Auto 8.3 % (2-11); Neutrophils Absolute Auto 4.2 x10*3/uL (2.0-8.3); Neutrophils Percent Auto 57.3 % (45-73); Platelet Count 230 X10*3/uL (160-400); Red Blood Count 5.75 X10*6/uL (4.60-5.80); Red Cell Distribution Width 15.7 % (11.0-16.0); White Blood Count 7.4 X10*3/uL (4.8-10.8)
[2024-09-08 12:54] LABS: Estimated Average Glucose 151 mg/dL; Hemoglobin A1C 203.3577 umol/L; Hemoglobin A1c % 6.9 % (<6.0); Total Hemoglobin (HGBA1C) 3926.7163 umol/L
[2024-09-08 13:24] LABS: Influenza A PCR NEGATIVE (Negative); Influenza B PCR NEGATIVE (Negative); Resp Syncy Virus RNA Qual PCR POSITIVE (Negative); SARS COV2 PCR INHOUSE NEGATIVE (Negative)
[2024-09-08 13:45] LABS: Alanine Aminotransferase 38 U/L (0-40); Albumin Level 3.9 g/dL (3.5-5.0); Alkaline Phosphatase 39 U/L (39-117); Anion Gap 8 (12-20); Aspartate Amino Transferase 33 U/L (5-37); Bilirubin Total 0.4 mg/dL (0.0-1.0); Blood Urea Nitrogen 23 mg/dL (9-16); Carbon Dioxide 30 mmol/L (22-29); Chloride 106 mmol/L (96-108); Cholesterol 107 mg/dL (<200); Estimated Glomerular Filt Rate > 60; Glucose Random 82 mg/dL (60-115); HDL Cholesterol 29 mg/dL (>40); LDL Cholesterol Calculated 46 mg/dL (<100); Sodium 140 mmol/L (135-145); Total Protein 6.8 g/dL (6.5-8.0); Triglycerides 163 mg/dL (<150)
[2024-09-08 14:08] LABS: Folate 11.1 ng/mL (> or = 4.0); Prostate Specific Antigen Scr 0.36 ng/mL (<0.05-4.0); Vitamin B12 1314 pg/mL (200-900)
[2024-09-08 14:09] LABS: Free T4 (Free Thyroxine) 1.07 ng/dL (0.71-1.85); Thyroid Stimulating Hormone 7.04 uIU/mL (0.32-4.0)
[2024-09-08 14:28] LABS: Creatinine Urine 131.33 mg/dL
[2024-09-20 16:14] LABS: Testosterone, Total 140 ng/dL (250-1100)
== END 2024-09-08 08:42 | disposition home or self-care (01) ==
LOC: HO.LAB 08:41
PROVIDERS: PCP Internal Medicine; Visit Provider Internal Medicine
DX: Z12.5 Encounter for screening for malignant neoplasm of prostate (principal); J40 Bronchitis, not specified as acute or chronic; E11.65 Type 2 diabetes mellitus with hyperglycemia; E78.00 Pure hypercholesterolemia, unspecified; R05.3 Chronic cough
CPT/HCPCS: 0241U; 71046; 80053; 80061; 82043; 82570; 82607; 82746; 83036; 84153; 84403; 84439; 84443; 85025; 96127

== ENCOUNTER 2024-09-08 08:41 | Outpatient (AMB) | payer OTHER, SELFPAY ==
--- NOTE | 2024-09-08 08:42 | MHC.PC.OV ---
Intake Visit Reasons: Cold Symptoms Allergies duloxetine [Cymbalta] Allergy (Unknown, Verified 09/08/24 08:43) suicidal ideation metformin Allergy (Unknown, Verified 09/08/24 08:43) rash Tobacco use date assessed: 09/08/24 Fall risk assessment: No Falls in past year Last assessed Fall Risk: 09/08/24 Dental Screening Dental Screen Date: 09/08/24 Did you have a dental visit in the last 12 months?: Yes Did you have a dental problem in the last 6 months where you did not have access to dental care?: No Was dental information given to patient?: Patient has dentist HPI Cold Symptoms HPI Details 64-year-old obese male with diabetes mellitus hypertension hypercholesterolemia hypothyroid coming in or calling in through Telehealth productive cough. Started of all a September 03 with cough fever had some norovirus at that time meaning gastroenteritis or diarrhea and nausea and vomiting then has gone to coughing productive phlegm tiredness myalgia weakness prompting for consultation. Called in last Sunday and was sent in some antibiotic. Patient was asking for some notes for work. And with a productive cough was asking for a chest x-ray. [facility] Medical History (Updated 09/05/24 @ 19:15 by Cruz Yi MD) Adenoma of left adrenal gland Tubular adenoma of colon Upper respiratory infection Colon cancer screening Obesity (BMI 30-39.9) Fatty liver Diabetic neuropathy Hypothyroid Osteoarthritis of knee Hypogonadism Hypercholesterolemia Hypertension Type 2 diabetes mellitus with hyperglycemia Surgical History History of arthroplasty History of surgical removal of meniscus of knee History of thyroidectomy Family History Father Myocardial infarction Melanoma Mother Cancer of lymphatic and hematopoietic tissue Daughter In good health Sister In good health Brother In good health Myocardial infarction Paternal Grandfather Myocardial infarction Social History Household Members: Family Housing: House Alcohol intake: current Alcohol intake frequency: holidays/special occasions only Comment: once a year 1 glass Patient Tobacco Use Status: Never used Tobacco Tobacco use type: Cigarette e-Cigarette/Vaping Use: Never Used Second Hand Smoke Exposure: No service: Yes Current occupational status: employed Current occupational exposures/hazards: No Cognitive needs: No Hearing needs: No Vision needs: Yes Questionnaire PHQ-9 Over the last 2 weeks, how often have you been bothered by any of the following problems? 1. Little interest or pleasure in doing things: not at all 2. Feeling down, depressed, or hopeless: not at all 3. Trouble falling or staying asleep, or sleeping too much: not at all 4. Feeling tired or having little energy: not at all 5. Poor appetite or overeating: not at all 6. Feeling bad about yourself - or that you are a failure or have let yourself or your family down: not at all 7. Trouble concentrating on things, such as reading the newspaper or watching television: not at all 8. Moving or speaking so slowly that other people could have noticed. Or the opposite - being so fidgety or restless that you have been moving around a lot more than usual: not at all 9. Thoughts that you would be better off or of hurting yourself in some way: not at all Total score: 0 Depression Screening Interpretation: Negative Depression Screening Done: Yes Source: Developed by Drs. Hubert Hernandez, Kay Pitts, Kirk Noel and colleagues, with an educational radha from [employer]. Thrive Questionnaire Date Thrive assessed: 09/08/24 I am a: Patient What is your living situation today?: I have a steady place to live Within the past 12 months, did the food you bought not last and you didn't have the money to get more?: Never true Within the past 12 months, did you worry whether your food would run out before you got money to buy more?: Never true Do you have trouble paying for medicines?: No Do you have trouble getting transportation to medical appointments?: No Do you have trouble paying your heating and electricity bill?: No Do you have trouble taking care of your child, family member or friend?: No Do you have trouble with day-to-day activities such as bathing, preparing meals, shopping, managing finances, etc.?: No Are you currently unemployed and looking for a job?: No Are you interested in more education?: No Currently or been in a relationship where the following occur: No concerns reported THRIVE Score: 0 AUDIT C Alcohol Use Questionnaire (AUDIT-C) 1. How often do you have a drink containing alcohol?: Never 3. How often do you have six or more drinks on one occasion?: Never Total Score: 0 TANIA-7 AMB Questionnaire TANIA-7 Date TANIA - 7 assessed: 09/08/24 Feeling nervous, anxious, or on edge: 0 = Not at all Not being able to stop or control worryin = Not at all Worrying too much about different things: 0 = Not at all Trouble relaxin = Not at all Being so restless that it is hard to sit still: 0 = Not at all Becoming easily annoyed or irritable: 0 = Not at all Feeling afraid as if something awful might happen: 0 = Not at all Total TANIA-7 score (0-4 normal; 5-9 mild; 10-14 moderate; 15-21 severe): 0 Source: Developed by Drs. Hubert Hernandez, Kay Pitts, Kirk Noel and colleagues, with an educational radha from [employer]. Physical exam (Primary Care) Tobacco/Smoking Status: Tobacco use Status Tobacco use date assessed 09/08/24 09/08/24 08:44 Patient Tobacco Use Status Never used Tobacco 09/08/24 08:44 Tobacco use type Cigarette 09/08/24 08:44 e-Cigarette/Vaping Use Never Used 09/08/24 08:44 PHQ-9: PHQ-9 Score PHQ-9: Total score 0 09/08/24 08:44 Depression Screening Interpretation: Negative Thrive Assessment: Date of Thrive Assessment Date Thrive assessed 09/08/24 09/08/24 08:44 Currently or been in a relationship where the following occur: No concerns reported Telehealth Telehealth Telehealth Platform: Telephone Location of provider rendering services: practice address Location of patient: address on file Patient Identification confirmed using: Name, : Yes Telehealth method: voice only Patient verbally consented to treatment: Yes Patient verbally consented to billing insurance company: Yes Patient informed of any privacy concerns related to visit: Yes Minutes spent on Phone/Video with Pt.: 15 Coding Level of Care Code Tele Est Pt Level 3 (98018) Diagnoses Bronchitis J40 Assessment & Plan Assessment & Plan (1) Bronchitis: Code(s): J40 - Bronchitis, not specified as acute or chronic Category: Medical Plan: Chest x-ray requested as well as testing for COVID-19, flu and RSV. For the sore throat can take Cepacol lozenges, discussed about Delsym to help with dry cough so she can rest and advised to increase oral fluids. Patient also can take Tylenol for chills and fever. Orders: Orders SARS-CoV2/FLU/RSV Today J40 - Bronchitis, not specified as acute or chronic XR chest 2V Today J40 - Bronchitis, not specified as acute or chronic
== END 2024-09-08 09:11 | disposition home or self-care (01) ==
LOC: HO.HMCH 08:41
PROVIDERS: PCP Internal Medicine; Visit Provider Internal Medicine
DX: J40 Bronchitis, not specified as acute or chronic (principal)

== ENCOUNTER → 2024-09-08 12:43 | Outpatient (BNV) | payer OTHER, SELFPAY | PROVIDERS: PCP Internal Medicine; Visit Provider Radiology Diagnostic Radiology | DX: J40 Bronchitis, not specified as acute or chronic (principal) | CPT/HCPCS: 71046 ==

== ENCOUNTER 2024-09-18 08:08 | Outpatient (REF) | payer OTHER, SELFPAY | END 2024-09-18 08:09 | disposition home or self-care (01) | LOC: HO.BBR 08:08 | PROVIDERS: PCP Internal Medicine; Visit Provider Internal Medicine Medical Oncology | DX: D75.1 Secondary polycythemia (principal) | CPT/HCPCS: 85018; 99195 ==

== ENCOUNTER → 2024-10-02 08:37 | Outpatient (BNVA) | payer OTHER, SELFPAY | PROVIDERS: PCP Internal Medicine; Visit Provider Internal Medicine | DX: Z13.89 Encounter for screening for other disorder (principal) | CPT/HCPCS: 96127 ==

== ENCOUNTER 2024-10-24 14:36 | Outpatient (AMB) | payer OTHER, SELFPAY ==
--- NOTE | 2024-10-24 14:36 | A.OFFPC_ITS ---
Intake Visit Reasons: Cough Allergies duloxetine [Cymbalta] Allergy (Unknown, Verified 10/24/24 14:37) suicidal ideation metformin Allergy (Unknown, Verified 10/24/24 14:37) rash Medication List - Last Reconciled 10/24/24 by Cruz Yi MD amlodipine 5 mg PO DAILY 90 days aspirin (Adult Low Dose Aspirin) 81 mg PO DAILY [AUTO PAP 10-20 CM H20 humidified AIR Sleep study done 11/01/2023 results showing obstructive sleep apnea moderate with AHI of 21.1 advised auto CPAP 10-20 cm water] cyanocobalamin (vitamin B-12) 1,000 mcg PO DAILY dapagliflozin propanediol (Farxiga) 10 mg PO DAILY doxycycline hyclate 100 mg PO BID dulaglutide 4.5 mg (0.5 mL) subcut QWEEK 90 days fenofibrate nanocrystallized 145 mg PO DAILY flash glucose scanning reader ([employer] Yoselin 14 Day [place]) As directed flash glucose sensor ([employer] Yoselin 14 Day Sensor kit) As directed fluticasone propionate 50 mcg/actuation 2 sprays intranasal DAILY glipizide 10 mg PO BID levothyroxine (Synthroid) 137 mcg PO DAILY lisinopril 30 mg PO BID 90 days metoprolol succinate ER 25 mg PO DAILY 90 days needle (disp) 18 G (BD Regular Bevel [place]) As directed needle (disp) 22 G (Exel Hypodermic [place]) As directed rosuvastatin (Crestor) 20 mg PO DAILY testosterone cypionate 200 mg IM Q2W Tobacco use date assessed: 09/08/24 Fall risk assessment: No Falls in past year Last assessed Fall Risk: 10/24/24 Dental Screening Dental Screen Date: 09/08/24 [facility] Medical History (Updated 10/24/24 @ 16:04 by Cruz Yi MD) Adenoma of left adrenal gland Tubular adenoma of colon Upper respiratory infection Colon cancer screening Obesity (BMI 30-39.9) Fatty liver Diabetic neuropathy Hypothyroid Osteoarthritis of knee Hypogonadism Hypercholesterolemia Hypertension Type 2 diabetes mellitus with hyperglycemia Surgical History History of arthroplasty History of surgical removal of meniscus of knee History of thyroidectomy Family History Father Myocardial infarction Melanoma Mother Cancer of lymphatic and hematopoietic tissue Daughter In good health Sister In good health Brother In good health Myocardial infarction Paternal Grandfather Myocardial infarction Social History Household Members: Family Housing: House Alcohol intake: current Alcohol intake frequency: holidays/special occasions only Comment: once a year 1 glass Patient Tobacco Use Status: Never used Tobacco Tobacco use type: Cigarette e-Cigarette/Vaping Use: Never Used Second Hand Smoke Exposure: No service: Yes Current occupational status: employed Current occupational exposures/hazards: No Cognitive needs: No Hearing needs: No Vision needs: Yes Questionnaire Thrive Questionnaire Date Thrive assessed: 09/08/24 TANIA-7 AMB Questionnaire TANIA-7 Date TANIA - 7 assessed: 09/08/24 Source: Developed by Drs. Hubert Hernandez, Kay Pitts, Kirk Noel and colleagues, with an educational radha from [employer]. Physical exam (Primary Care) Tobacco/Smoking Status: Tobacco use Status Tobacco use date assessed 09/08/24 10/24/24 14:38 Patient Tobacco Use Status Never used Tobacco 10/24/24 14:38 Tobacco use type Cigarette 10/24/24 14:38 e-Cigarette/Vaping Use Never Used 10/24/24 14:38 Thrive Assessment: Date of Thrive Assessment Date Thrive assessed 09/08/24 10/24/24 14:38 Telehealth Telehealth Telehealth Platform: Telephone Location of provider rendering services: practice address Location of patient: address on file Patient Identification confirmed using: Name, : Yes Telehealth method: voice only Patient verbally consented to treatment: Yes Patient verbally consented to billing insurance company: Yes Patient informed of any privacy concerns related to visit: Yes Minutes spent on Phone/Video with Pt.: 15 Coding Level of Care Code Tele Est Pt Level 3 (21616) Diagnoses Cough R05.9 Acute bronchitis J20.9 Assessment & Plan Assessment & Plan (1) Cough: Code(s): R05.9 - Cough, unspecified Category: Medical (2) Acute bronchitis: Code(s): J20.9 - Acute bronchitis, unspecified Category: Medical Plan History of Present Illness The patient is a 64-year-old male presenting with persistent cough and green mucus production. He observes that the cough, which yields green mucus primarily in the morning, has been a consistent issue, signifying possible sinus involv ement. His past medical regimen involved azithromycin, which was not efficacious, whereas doxycycline was recalled to be more beneficial in controlling his symptoms previously. Chronic health conditions include Type 2 Diabetes Mellitus, uncontrolled, essential hypertension, hypercholesterolemia, and hypothyroidism, which are managed regularly. He maintains hydration and utilizes cough medications like Delsim DM and expectorants such as Mucinex to manage symptoms. A delay in healthcare compliance was noted due to insurance lapses, highlighting current semi-senior care. Review of Systems - Respiratory: Reports persistent cough productive of green mucus. Plan Doxycycline will be administered given previous efficacy in resolving similar symptoms, contrasting the inefficacy of azithromycin. Cough management will continue with [id number] Delsim DM and Mucinex. Emphasis on adequate hydration is made to assist mucus clearance. Chronic conditions management remains unchanged, and the patient should observe symptom progression with an option for reassessment depending on treatment response. Patient was informed and verbally consented to the use of an ambient scribe for clinic note documentation during this visit. Discussion Notes I explained that doxycycline is being prescribed again due to its prior effectiveness, while azithromycin did not provide symptom relief. We discussed the continued use of Delsim DM and Mucinex to manage symptoms and emphasized the importance of staying hydrated. I reassured the patient that call-backs can occur if symptoms do not improve or worsen, particularly considering his chronic medical conditions of uncontrolled diabetes, hypertension, hypercholesterolemia, and hypothyroidism, which are under management. The discussion included the p misael's declared semi-senior care status, prompting acknowledgment of activity management in his health routine. Patient Instructions - Take doxycycline as prescribed. - Use Delsim DM for cough relief, especially at night. - Continue using Mucinex to help with mucus clearance during the day. - Drink plenty of water to stay hydrated and assist with mucus clearance. - Monitor symptom improvement and contact me if symptoms persist or worsen. - Continue management of chronic conditions as directed. Medications: New doxycycline hyclate 100 mg PO BID 14 caps 0RF J20.9 - Acute bronchitis, unspecified
== END 2024-10-24 16:10 | disposition home or self-care (01) ==
LOC: HO.HMCH 14:36
PROVIDERS: PCP Internal Medicine; Visit Provider Internal Medicine
DX: R05.9 Cough, unspecified (principal); J20.9 Acute bronchitis, unspecified

== ENCOUNTER → 2024-10-24 14:36 | Outpatient (BNVA) | payer SELFPAY | PROVIDERS: PCP Internal Medicine; Visit Provider Internal Medicine ==

== ENCOUNTER 2024-11-18 08:24 | Outpatient (AMB) | payer MEDICARE, OTHER, SELFPAY ==
[2024-11-18 08:30] VITALS: BP 132/82; PULSE 72; O2SAT 98; BMI 32.7
--- NOTE | 2024-11-18 08:30 | A.OFFPC_ITS ---
Vital Signs 11/18/24 08:30 Height 5 ft 10 in Weight 228 lb BMI 32.7 BP 132/82 Blood Pressure Location Lt brachial Position Sitting Pulse 72 Pulse Source Pulse Oximeter Pulse Oximetry (%) 98 Oxygen Delivery Method Room Air Intake Visit Reasons: DM Allergies duloxetine [Cymbalta] Allergy (Unknown, Verified 11/18/24 08:30) suicidal ideation metformin Allergy (Unknown, Verified 11/18/24 08:30) rash Tobacco use date assessed: 09/08/24 Fall risk assessment: No Falls in past year Last assessed Fall Risk: 11/18/24 Dental Screening Dental Screen Date: 09/08/24 [facility] Medical History (Updated 11/18/24 @ 08:44 by Cruz Yi MD) Bronchitis Diarrhea Acute bronchitis Cough Adenoma of left adrenal gland Tubular adenoma of colon Upper respiratory infection Colon cancer screening Obesity (BMI 30-39.9) Fatty liver Diabetic neuropathy Hypothyroid Osteoarthritis of knee Hypogonadism Hypercholesterolemia Hypertension Type 2 diabetes mellitus with hyperglycemia Surgical History History of arthroplasty History of surgical removal of meniscus of knee History of thyroidectomy Family History Father Myocardial infarction Melanoma Mother Cancer of lymphatic and hematopoietic tissue Daughter In good health Sister In good health Brother In good health Myocardial infarction Paternal Grandfather Myocardial infarction Social History Household Members: Family Housing: House Alcohol intake: current Alcohol intake frequency: holidays/special occasions only Comment: once a year 1 glass Patient Tobacco Use Status: Never used Tobacco Tobacco use type: Cigarette e-Cigarette/Vaping Use: Never Used Second Hand Smoke Exposure: No service: Yes Current occupational status: employed Current occupational exposures/hazards: No Cognitive needs: No Hearing needs: No Vision needs: Yes Questionnaire PHQ-9 Over the last 2 weeks, how often have you been bothered by any of the following problems? 1. Little interest or pleasure in doing things: not at all 2. Feeling down, depressed, or hopeless: not at all 3. Trouble falling or staying asleep, or sleeping too much: not at all 4. Feeling tired or having little energy: not at all 5. Poor appetite or overeating: not at all 6. Feeling bad about yourself - or that you are a failure or have let yourself or your family down: not at all 7. Trouble concentrating on things, such as reading the newspaper or watching television: not at all 8. Moving or speaking so slowly that other people could have noticed. Or the opposite - being so fidgety or restless that you have been moving around a lot more than usual: not at all 9. Thoughts that you would be better off or of hurting yourself in some way: not at all Total score: 0 Depression Screening Interpretation: Negative Depression Screening Done: Yes 40061 - PHQ-9 Billing: Yes Source: Developed by Drs. Hubert Hernandez, Kay Pitts, Kirk Noel and colleagues, with an educational radha from [employer]. Thrive Questionnaire Date Thrive assessed: 10/02/24 I am a: Patient What is your living situation today?: I have a steady place to live Within the past 12 months, did the food you bought not last and you didn't have the money to get more?: Never true Within the past 12 months, did you worry whether your food would run out before you got money to buy more?: Never true Do you have trouble paying for medicines?: I choose not to answer this question Do you have trouble getting transportation to medical appointments?: No Do you have trouble paying your heating and electricity bill?: No Do you have trouble taking care of your child, family member or friend?: No Do you have trouble with day-to-day activities such as bathing, preparing meals, shopping, managing finances, etc.?: No Are you currently unemployed and looking for a job?: I choose not to answer this question Are you interested in more education?: I choose not to answer this question Please select the resources that you would like help with: None Currently or been in a relationship where the following occur: No concerns reported THRIVE Score: 0 AUDIT C Alcohol Use Questionnaire (AUDIT-C) 1. How often do you have a drink containing alcohol?: Never Total Score: 0 TANIA-7 AMB Questionnaire TANIA-7 Date TANIA - 7 assessed: 09/08/24 Source: Developed by Drs. Hubert Hernandez, Kirk Brooks and colleagues, with an educational radha from [employer]. Physical exam (Primary Care) Vital Signs: Last Vital Signs Pulse 72 11/18/24 08:30 BP 132/82 11/18/24 08:30 Pulse Ox 98 11/18/24 08:30 Oxygen Delivery Method Room Air 11/18/24 08:30 BMI result Body Mass Index 32.7 Tobacco/Smoking Status: Tobacco use Status Tobacco use date assessed 09/08/24 11/18/24 08:39 Patient Tobacco Use Status Never used Tobacco 11/18/24 08:39 Tobacco use type Cigarette 11/18/24 08:39 e-Cigarette/Vaping Use Never Used 11/18/24 08:39 PHQ-9: PHQ-9 Score PHQ-9: Total score 0 11/18/24 08:46 Depression Screening Interpretation: Negative Thrive Assessment: Date of Thrive Assessment Date Thrive assessed 10/02/24 11/18/24 08:39 Currently or been in a relationship where the following occur: No concerns reported Const General: alert; No acute distress Eyes Conjunctivae: conjunctivae normal Resp Auscultation: clear to auscultation bilaterally Cardio Rate: regular rate Rhythm: regular rhythm GI Inspection: Yes normal to inspection Extrem General: Yes normal to inspection and No edema Immunizations pneumoc 20-tobias conj-dip cr(PF) 0.5 mL IM syringe Performing Provider: Cruz Yi MD [facility] [place] [facility] Administered by: Kymberly Mariscal CMA on 11/18/24 09:06 Dose Route Admin Location Dispensed Lot Number Expiration Date [facility] [facility] [place] [employer] 0.5 mL IM Left Deltoid 0.5 mL [id number] 12/25/25 [employer] VIS Given Date VIS Provided VIS Publication Date 11/18/24 Single Vaccine 21 Eligibility Eligibility Date Funding Source Not [facility] Eligible 11/18/24 Private Coding Level of Care Code Est Pt Level 4 (78492) Complex EM visit Add On G2211 Diagnoses Acquired hypothyroidism E03.9 Hypothyroidism type: acquired Obesity (BMI 30-39.9) E66.9 Type 2 diabetes mellitus with hyperglycemia, without long-term current use of insulin E11.65 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: without terminal computer operator use Essential hypertension I10 Hypertension type: essential hypertension Hypercholesterolemia E78.00 Hypogonadism Moderate obstructive sleep apnea G47.33 Additional Codes PHQ-9 - 76255 - PHQ-9 Billing: Yes ([id number]) Assessment & Plan Assessment & Plan (1) Hypothyroid: Comment: Thyroidectomy nodule 2018 no cancer Code(s): E03.9 - Hypothyroidism, unspecified Category: Medical Qualifiers: Hypothyroidism type: acquired Qualified Code(s): E03.9 - Hypothyroidism, unspecified Plan: Noted elevated TSH and will need to be repeated (2) Obesity (BMI 30-39.9): Code(s): E66.9 - Obesity, unspecified Category: Medical Plan: Diet and exercise (3) Type 2 diabetes mellitus with hyperglycemia: Comment: [facility] 11/2022 Code(s): E11.65 - Type 2 diabetes mellitus with hyperglycemia Category: Medical Qualifiers: Diabetes mellitus skilled nursing insulin use: without skilled nursing use Qualified Code(s): E11.65 - Type 2 diabetes mellitus with hyperglycemia Plan: Decrease the amount of carbohydrate intake, pasta, bread, rice and potatoes are all sugar and that is aside from all the sweet stuff, remember that fruits are good but they are Sweet also. Hemoglobin A1c goal of less than 7.0 now. Patie nt on Farxiga 10 mg once a day Trulicity at 4.5 mg once a week glipizide 10 mg twice a day (4) Hypertension: Code(s): I10 - Essential (primary) hypertension Category: Medical Qualifiers: Hypertension type: essential hypertension Qualified Code(s): I10 - Essential (primary) hypertension Plan: Continue with blood pressure medication. Decrease salt intake and exercise patient on metoprolol 25 mg once a day lisinopril 30 mg twice a day and amlodipine 5 mg once a day (5) Hypercholesterolemia: Comment: May 2023 LDL is 81 Code(s): E78.00 - Pure hypercholesterolemia, unspecified Category: Medical Plan: Avoid fried foods, chicken skin, eggs, butter margarine, pastries and meat. Be it pork or beef they have a lot of cholesterol LDL goal of less than 100 and triglyceride of less than 150 patient takes rosuvastatin 20 mg once a day (6) Hypogonadism: Category: Medical Plan: Patient on testosterone seeing Urology (7) Moderate obstructive sleep apnea: Comment: Sleep study done 11/01/2023 results showing obstructive sleep apnea moderate with AHI of 21.1 advised auto CPAP 10-20 cm water Code(s): G47.33 - Obstructive sleep apnea (adult) (pediatric) Category: Medical Plan: Continue to use the CPAP more than 4 hours a night and benefits from this Plan History of Present Illness The patient is a 64-year-old male presenting for follow-up of several chronic c onditions. He is noted to have elevated TSH from blood work conducted in August 2022, with a TSH level of 7.04. The patient seeks a repeat assessment for thyroid levels due to the previous abnormal findings. His management plan for diabetic control shows a Hemoglobin A1c of 6.9. He was last treated for bronchitis via telehealth in September 2022. The patient has a history of essential hypertension, hypercholesterolemia, hypothyroidism, and obesity. He handles diabetes management with a prescribed regimen of Farxiga, Trulicity, and Glipizide. Blood pressure management includes a combination therapy of Metoprolol, Lisinopril, and Amlodipine. The patient also reports previous colonoscopy findings up to June 2022 that showed a tubular adenoma. Ophthalmologic review by Dr. Lizeth Hernández confirmed no retinopathy or macular edema but did reveal cataracts, with an unchanged status nor significant vision alterations. The patient uses CPAP therapy for obstructive sleep apnea effectively. Continuing attention is required for his hypothyroidism, given past fluctuations in TSH levels requiring monitoring and adjustment of levothyroxine doses. His testosterone levels, initially low at 140, were addressed with regular hormone therapy. Health Maintenance - Colonoscopy in June 2022 showed tubular adenoma. - Blood work in August 2022 with normal liver and renal function, anemia excluded. - LDL cholesterol level at 46, triglycerides at 163. - Regular curtain inspector consultation with cataract monitoring. - Pneumonia and flu vaccinations updated. - Diabetes management with Hemoglobin A1c goal <7.0. - Active use of CPAP for obstructive sleep apnoea. 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 - No reported occupational exposure risks. - Instructed to avoid high-calorie and high-fat foods. - Guided on reducing B12 intake due to elevated levels. Review of Systems - Eyes: Reports floaters; denies retinopathy or macular edema. - Endocrine: Denies concern over current testosterone regimen. Physical Exam Results - Labs: TSH elevated at 7.04, Hemoglobin A1c at 6.9, LDL cholesterol at 46, Triglycerides at 163, No anemia, normal liver and kidney function, Testosterone level at 140. - Tests: Colonoscopy in June 2022 reporting tubular adenoma. Plan 1. 0. Blood pressure management will be continued with prescribed antihypertensives. His cholesterol levels will be overseen with Rosuvastatin, aiming for LDL below 100 and triglycerides below 150. Testosterone therapy to be administered biweekly, monitoring levels with the forthcoming blood work. He will undergo a repeat TSH test next month to adjust his thyroid medication accordingly. For cataracts, the current plan involves regular curtain inspector assessments. The patient is advised to continue CPAP therapy for sleep apnea with at least 4 hours of nighttime use. Lifestyle modifications regarding diet and reduced intake were recommended due to increased levels, aligning dietary changes to support triglyceride management: . Patient was informed and verbally consented to the use of an ambient scribe for clinic note documentation during this visit. Discussion Notes I discussed the importance of regular monitoring and management of his chronic conditions with the patient, particularly focusing on diabetes, hypertension, and hypothyroidism. We reviewed the need for medication adherence to maintain target goals for his Hemoglobin A1c and LDL levels. I provided guidance on dietary adjustments to help manage his triglyceride levels better. We addressed repeat testing for his thyroid function next month in response to his previous abnormal results. The patient understands the plan to adjust his thyroid medication based on the next set of results. Regarding testosterone, the patient is aware of the implications of low levels and the necessity of ongoing evaluation of therapy effectiveness. We agreed on continuing CPAP therapy to manage obstructive sleep apnea, which has been beneficial. I provided information regarding the risks of high B12 levels and advised reducing intake frequency. We concluded with scheduling a follow-up for the repeat of TSH levels, Hemoglobin A1c, and testosterone testing, and documenting all findings for future reference and continuation of care. Patient Instructions - Continue diabetic medication regime as prescribed. - Maintain blood pressure medications and monitor readings. - Adhere to diet changes to control cholesterol and triglyceride levels. - Reduce B12 supplement intake to weekly. - Continue CPAP usage for more than 4 hours nightly. - Schedule blood work next month for TSH and testosterone level assessments. - Follow up with the curtain inspector for regular eye health monitoring. - Be cautious of symptoms and seek early medical attention if concerns arise. Orders: Orders Thyroid Stimulating Hormone Today E03.9 - Hypothyroidism, unspecified Free T4 (Free Thyroxine) Today E03.9 - Hypothyroidism, unspecified Hemoglobin A1c Today E11.65 - Type 2 diabetes mellitus with hyperglycemia Comprehensive Met. Panel Today E11.65 - Type 2 diabetes mellitus with hyperglycemia Testosterone, Free/Total Today E03.9 - Hypothyroidism, unspecified Medications: Refilled lisinopril 30 mg PO BID 90 days 180 tabs 3RF I10 - Essential (primary) hypertension
== END 2024-11-18 09:19 | disposition home or self-care (01) ==
PROVIDERS: PCP Internal Medicine; Visit Provider Internal Medicine
DX: E11.65 Type 2 diabetes mellitus with hyperglycemia (principal); E03.9 Hypothyroidism, unspecified; E66.9 Obesity, unspecified; Z68.32 Body mass index [BMI] 32.0-32.9, adult; I10 Essential (primary) hypertension; E78.00 Pure hypercholesterolemia, unspecified; G47.33 Obstructive sleep apnea (adult) (pediatric); Z23 Encounter for immunization

== ENCOUNTER → 2024-11-18 08:24 | Outpatient (BNVA) | payer MEDICARE, SELFPAY | PROVIDERS: PCP Internal Medicine; Visit Provider Internal Medicine | DX: Z23 Encounter for immunization (principal); E03.9 Hypothyroidism, unspecified; E66.9 Obesity, unspecified; E11.65 Type 2 diabetes mellitus with hyperglycemia; E78.00 Pure hypercholesterolemia, unspecified; I10 Essential (primary) hypertension | CPT/HCPCS: 90471; 90677; 96127; 99212 ==

== ENCOUNTER 2024-12-17 08:21 | Outpatient (REF) | payer MEDICARE, OTHER, SELFPAY | END 2024-12-17 08:22 | disposition home or self-care (01) | LOC: HO.BBR 08:21 | PROVIDERS: PCP Internal Medicine; Visit Provider Internal Medicine Medical Oncology | DX: D75.1 Secondary polycythemia (principal) | CPT/HCPCS: 85014; 85018; 99195 ==

== ENCOUNTER 2025-03-17 08:04 | Outpatient (REF) | payer MEDICARE, OTHER, SELFPAY | END 2025-03-17 08:05 | disposition home or self-care (01) | LOC: HO.BBR 08:04 | PROVIDERS: PCP Internal Medicine; Visit Provider Internal Medicine Medical Oncology | DX: D75.1 Secondary polycythemia (principal) | CPT/HCPCS: 85018; 99195 ==

== ENCOUNTER 2025-03-18 08:00 | Outpatient (REF) | payer MEDICARE, OTHER, SELFPAY ==
[2025-03-18 10:11] LABS: Hemoglobin A1C 250.1650 umol/L; Total Hemoglobin (HGBA1C) 3867.0309 umol/L
[2025-03-18 10:44] LABS: Alanine Aminotransferase 23 U/L (0-40); Albumin Level 4.3 g/dL (3.5-5.0); Alkaline Phosphatase 40 U/L (39-117); Anion Gap 14 (12-20); Aspartate Amino Transferase 24 U/L (5-37); Blood Urea Nitrogen 30 mg/dL (9-16); Calcium 9.2 mg/dL (8.4-10.2); Carbon Dioxide 28 mmol/L (22-29); Chloride 103 mmol/L (96-108); Estimated Glomerular Filt Rate > 60; Free T4 (Free Thyroxine) 1.16 ng/dL (0.71-1.85); Potassium 4.5 mmol/L (3.3-5.1); Sodium 140 mmol/L (135-145); Thyroid Stimulating Hormone 1.11 uIU/mL (0.32-4.0); Total Protein 6.8 g/dL (6.5-8.0)
[2025-03-24 11:03] LABS: Testosterone, Free 43.7 pg/mL (35.0-155.0)
== END 2025-03-18 08:01 | disposition home or self-care (01) ==
LOC: HO.LAB 08:00
PROVIDERS: PCP Internal Medicine; Visit Provider Internal Medicine
DX: E11.65 Type 2 diabetes mellitus with hyperglycemia (principal); E03.9 Hypothyroidism, unspecified; E29.1 Testicular hypofunction
CPT/HCPCS: 36415; 80053; 82570; 83036; 84402; 84403; 84439; 84443

== ENCOUNTER 2025-03-20 08:48 | Outpatient (AMB) | payer MEDICARE, OTHER, SELFPAY ==
--- NOTE | 2025-03-20 08:58 | A.OFFPC_ITS ---
Vital Signs 03/20/25 08:59 03/20/25 09:40 Height 5 ft 10 in Weight 237 lb 2 oz BMI 34.0 BP 130/90 H 130/84 Blood Pressure Location Lt brachial Lt brachial Position Sitting Sitting Pulse 78 Pulse Source Pulse Oximeter Temp 97.1 F Temp Source Temporal Artery Scan Pulse Oximetry (%) 96 Oxygen Delivery Method Room Air Intake Visit Reasons: f/u HLD Intake Note: Patient is here to follow up on HLD. 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 Applique Cutter: Not Required per policy Accompanied by: Self / Same As Patient Allergies duloxetine (Cymbalta) Allergy (Unknown, Verified 03/20/25 08:59) suicidal ideation metformin Allergy (Unknown, Verified 03/20/25 08:59) rash Tobacco use date assessed: 03/20/25 Fall risk assessment: No Falls in past year Last assessed Fall Risk: 03/20/25 Dental Screening Dental Screen Date: 09/08/24 [facility] Medical History (Updated 12/22/24 @ 08:50 by Marilou Ambrocio MD) Bronchitis Diarrhea Acute bronchitis Cough Adenoma of left adrenal gland Tubular adenoma of colon Upper respiratory infection Colon cancer screening Obesity (BMI 30-39.9) Fatty liver Diabetic neuropathy Hypothyroid Osteoarthritis of knee Hypogonadism Hypercholesterolemia Hypertension Type 2 diabetes mellitus with hyperglycemia Surgical History History of arthroplasty History of surgical removal of meniscus of knee History of thyroidectomy Family History Father Myocardial infarction Melanoma Mother Cancer of lymphatic and hematopoietic tissue Daughter In good health Sister In good health Brother In good health Myocardial infarction Paternal Grandfather Myocardial infarction Social History Household Members: Family Housing: House Alcohol intake: current Alcohol intake frequency: holidays/special occasions only Comment: once a year 1 glass Patient Tobacco Use Status: Never used Tobacco Tobacco use type: Cigarette e-Cigarette/Vaping Use: Never Used Second Hand Smoke Exposure: No service: Yes Current occupational status: employed Current occupational exposures/hazards: No Cognitive needs: No Hearing needs: No Vision needs: Yes Questionnaire Thrive Questionnaire Date Thrive assessed: 10/02/24 I am a: Patient What is your living situation today?: I have a steady place to live Within the past 12 months, did the food you bought not last and you didn't have the money to get more?: Never true Within the past 12 months, did you worry whether your food would run out before you got money to buy more?: Never true Do you have trouble paying for medicines?: I choose not to answer this question Do you have trouble getting transportation to medical appointments?: No Do you have trouble paying your heating and electricity bill?: No Do you have trouble taking care of your child, family member or friend?: No Do you have trouble with day-to-day activities such as bathing, preparing meals, shopping, managing finances, etc.?: No Are you currently unemployed and looking for a job?: I choose not to answer this question Are you interested in more education?: I choose not to answer this question Please select the resources that you would like help with: None Currently or been in a relationship where the following occur: No concerns reported THRIVE Score: 0 AUDIT C Alcohol Use Questionnaire (AUDIT-C) 2. How many drinks containing alcohol do you have on a typical day when you are drinking?: 1 or 2 3. How often do you have six or more drinks on one occasion?: Never Total Score: 0 TANIA-7 AMB Questionnaire TANIA-7 Date TANIA - 7 assessed: 09/08/24 Source: Developed by Drs. Hubert Hernandez, Kay Pitts, Kirk Noel and colleagues, with an educational radha from [employer]. Physical exam (Primary Care) Vital Signs: Last Vital Signs Temp 97.1 F 03/20/25 08:59 Pulse 78 03/20/25 08:59 BP 130/84 03/20/25 09:40 Pulse Ox 96 03/20/25 08:59 Oxygen Delivery Method Room Air 03/20/25 08:59 BMI result Body Mass Index 34.0 Tobacco/Smoking Status: Tobacco use Status Tobacco use date assessed 03/20/25 03/20/25 09:03 Patient Tobacco Use Status Never used Tobacco 03/20/25 09:03 Tobacco use type Cigarette 03/20/25 09:03 e-Cigarette/Vaping Use Never Used 03/20/25 09:03 Thrive Assessment: Date of Thrive Assessment Date Thrive assessed 10/02/24 03/20/25 09:03 Currently or been in a relationship where the following occur: No concerns reported Const General: alert; No acute distress Eyes Conjunctivae: conjunctivae normal Resp Auscultation: clear to auscultation bilaterally Cardio Rate: regular rate Rhythm: regular rhythm GI Inspection: Yes normal to inspection Extrem General: Yes normal to inspection and No edema Coding Level of Care Code Est Pt Level 4 (15354) Complex EM visit Add On G2211 Diagnoses Type 2 diabetes mellitus with hyperglycemia, without long-term current use of insulin E11.65 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 insulin use: without correction use Essential hypertension I10 Hypertension type: essential hypertension Hypercholesterolemia E78.00 Hypogonadism Acquired hypothyroidism E03.9 Hypothyroidism type: acquired Obesity (BMI 30-39.9) E66.9 Erythrocytosis D75.1 Moderate obstructive sleep apnea G47.33 Assessment & Plan Assessment & Plan (1) Type 2 diabetes mellitus with hyperglycemia: Comment: [facility] 11/2022 Code(s): E11.65 - Type 2 diabetes mellitus with hyperglycemia Category: Medical Qualifiers: 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 insulin use: without longwall machine operator helper use Qualified Code(s): E11.65 - Type 2 diabetes mellitus with hyperglycemia Plan: Decrease the amount of carbohydrate intake, pasta, bread, rice and potatoes are all sugar and that is aside from all the sweet stuff, remember that fruits are good but they are Sweet also. Hemoglobin A1c goal of less than 6.5. Patient on [facility] glipizide (2) Hypertension: Code(s): I10 - Essential (primary) hypertension Category: Medical Qualifiers: Hypertension type: essential hypertension Qualified Code(s): I10 - Essential (primary) hypertension Plan: Continue with blood pressure medication. Decrease salt intake and exercise patient is taking metoprolol 25 mg once a day lisinopril 30 mg twice a day amlodipine 5 mg once a day (3) Hypercholesterolemia: Comment: May 2023 LDL is 81 Code(s): E78.00 - Pure hypercholesterolemia, unspecified Category: Medical Plan: Avoid fried foods, chicken skin, eggs, butter margarine, pastries and meat. Be it pork or beef they have a lot of cholesterol LDL goal of less than 100 and triglyceride of less than 150 on rosuvastatin and fenofibrate (4) Hypogonadism: Category: Medical Plan: Testosterone number is pending (5) Hypothyroid: Comment: Thyroidectomy nodule 2018 no cancer Code(s): E03.9 - Hypothyroidism, unspecified Category: Medical Qualifiers: Hypothyroidism type: acquired Qualified Code(s): E03.9 - Hypothyroidism, unspecified Plan: Continue with thyroid medication (6) Obesity (BMI 30-39.9): Code(s): E66.9 - Obesity, unspecified Category: Medical Plan: Diet and exercise (7) Erythrocytosis: Comment: Secondary to hormone therapy Code(s): D75.1 - Secondary polycythemia Category: Medical Plan: With the sleep apnea as well as testosterone patient does therapeutic phlebotomy. (8) Moderate obstructive sleep apnea: Comment: Sleep study done 11/01/2023 results showing obstructive sleep apnea moderate with AHI of 21.1 advised auto CPAP 10-20 cm water Code(s): G47.33 - Obstructive sleep apnea (adult) (pediatric) Category: Medical Plan: Continue with the CPAP more than 4 hours a night and benefits from this. Plan History of Present Illness The patient is a 64-year-old male presenting for a follow-up visit. He has a history of diabetes mellitus, hypertension, hypercholesterolemia, and hypothyroidism. His diabetes management includes medications such as Farxiga, Trulicity, and glipizide, with a recent hemoglobin A1c of 8.1% in February 2025, indicating suboptimal control. The patient also has a history of tubular adenoma of the colon, with the last colonoscopy performed in June 2022. He is under regular surveillance for this condition. He has been diagnosed with hypogonadism and is currently using testosterone therapy. Additionally, he has moderate obstructive sleep apnea and uses a CPAP machine regularly, which he finds beneficial. 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 He was last seen by hematology oncology in November. His blood pressure is managed with metoprolol, lisinopril, and amlodipine, and recent home readings have been around 130/90 mmHg. His cholesterol is managed wi th rosuvastatin, with an LDL goal of less than 100 mg/dL. Health Maintenance - Colonoscopy performed in June 2022 for surveillance of tubular adenoma - CPAP usage for obstructive sleep apnea, more than 4 hours a night - Regular therapeutic phlebotomy for secondary erythrocytosis - Up to date with pneumonia vaccination - Regular vision check-ups with [facility] History - Reports drinking almost three liters of water daily Review of Systems - Cardiovascular: Denies chest pain - Respiratory: Denies dyspnea - Gastrointestinal: Reports gastroesophageal reflux disease (GERD) Physical Exam - Cardiovascular: Blood pressure measured at 130/90 mmHg Results - Labs: Hemoglobin A1c 8.1% in February 2025 - Labs: LDL cholesterol 46 mg/dL in August 2024 - Labs: Normal blood count and electrolytes in November 2024 - Labs: Normal renal function in November 2024 - Labs: Thyroid function normal Plan The management plan for diabetes includes adjusting the medication regimen to improve glycemic control, with a goal of reducing hemoglobin A1c to below 6.5%. The patient is currently on Farxiga, Trulicity, and glipizide, and there is a consideration to switch from Trulicity to Mounjaro to aid in weight loss and better glycemic control, pending insurance approval. If Mounjaro is not approved, the patient will continue with Trulicity. For hypertension, the patient is advised to continue with metoprolol, lisinopril, and amlodipine, with a target blood pressure of less than 130/80 mmHg. The cholesterol management plan includes maintaining LDL levels below 100 mg/dL with rosuvastatin. The patient is advised to continue using CPAP for obstructive sleep apnea, ensuring usage for more than 4 hours per night. Regular therapeutic phlebotomy is to be continued for secondary erythrocytosis. The patient is encouraged to maintain adequate hydration, aiming for at least three liters of water daily, and to avoid excessive caffeine intake. Patient was informed and verbally consented to the use of an ambient scribe for clinic note documentation during this visit. Discussion Notes During the visit, we discussed the management of diabetes with a focus on improving glycemic control and potential medication adjustments, including the possibility of switching to Mounjaro for better weight management and glycemic outcomes. We also reviewed the importance of maintaining blood pressure and cholesterol levels within target ranges and the continuation of current medications for these conditions. The patient was advised on the benefits of regular CPAP use for obstructive sleep apnea and the necessity of therapeutic phlebotomy for secondary erythrocytosis. We emphasized the importance of adequate hydration and minimizing caffeine intake to support overall health. Patient Instructions - Continue current diabetes medications and monitor blood sugar levels regularly. - Use CPAP machine for at least 4 hours each night. - Maintain hydration by drinking at least three liters of water daily. - Avoid excessive caffeine intake. - Follow up in three months for reassessment and potential medication adjustments. Medications: New tirzepatide (Mounjaro) 5 mg (0.5 mL) subcut QWEEK 2 mL 4RF E11.65 - Type 2 diabetes mellitus with hyperglycemia Discontinued dulaglutide Discontinued Reason: Doctor's Order 4.5 mg (0.5 mL) subcut QWEEK 90 days 6.5 mL 3RF E11.65 - Type 2 diabetes mellitus with hyperglycemia
[2025-03-20 08:59] VITALS: BP 130/90; PULSE 78; TEMP 36.2; O2SAT 96; BMI 34.0
[2025-03-20 09:40] VITALS: BP 130/84
== END 2025-03-20 09:53 | disposition home or self-care (01) ==
LOC: HO.HMCH 08:49
PROVIDERS: PCP Internal Medicine; Visit Provider Internal Medicine
DX: E11.65 Type 2 diabetes mellitus with hyperglycemia (principal); I10 Essential (primary) hypertension; E78.00 Pure hypercholesterolemia, unspecified; E03.9 Hypothyroidism, unspecified; D75.1 Secondary polycythemia; E66.9 Obesity, unspecified; G47.33 Obstructive sleep apnea (adult) (pediatric)

== ENCOUNTER → 2025-03-20 08:48 | Outpatient (BNVA) | payer MEDICARE, OTHER, SELFPAY | PROVIDERS: PCP Internal Medicine; Visit Provider Internal Medicine | DX: E11.65 Type 2 diabetes mellitus with hyperglycemia (principal); I10 Essential (primary) hypertension; E78.00 Pure hypercholesterolemia, unspecified; E03.9 Hypothyroidism, unspecified; D75.1 Secondary polycythemia; E66.9 Obesity, unspecified; G47.33 Obstructive sleep apnea (adult) (pediatric) | CPT/HCPCS: 99212 ==

== ENCOUNTER 2025-06-16 08:08 | Outpatient (REF) | payer MEDICARE, OTHER, SELFPAY | END 2025-06-16 08:09 | disposition home or self-care (01) | LOC: HO.BBR 08:08 | PROVIDERS: PCP Internal Medicine; Visit Provider Internal Medicine Medical Oncology | DX: D75.1 Secondary polycythemia (principal) | CPT/HCPCS: 85018; 99195 ==

== ENCOUNTER 2025-06-24 08:31 | Outpatient (AMB) | payer MEDICARE, SELFPAY ==
[2025-06-24 08:49] VITALS: BP 118/82; PULSE 76; TEMP 36.2; O2SAT 97; BMI 32.9
--- NOTE | 2025-06-24 08:51 | AM.OFFVISMDC ---
Intake Vital Signs 06/24/25 08:49 06/24/25 08:55 Height 5 ft 10 in Weight 229 lb 2 oz BMI 32.9 32.9 BP 118/82 Blood Pressure Location Lt brachial Position Sitting Pulse 76 Pulse Source Pulse Oximeter Temp 97.1 F Temp Source Temporal Artery Scan Pulse Oximetry (%) 97 Oxygen Delivery Method Room Air Intake Visit Reasons: pe Allergies duloxetine (Cymbalta) Allergy (Unknown, Verified 06/24/25 08:53) suicidal ideation metformin Allergy (Unknown, Verified 06/24/25 08:53) rash Medication List - Last Reconciled 06/24/25 by Cruz Yi MD amlodipine 5 mg PO DAILY 90 days aspirin (Adult Low Dose Aspirin) 81 mg PO DAILY [AUTO PAP 10-20 CM H20 humidified AIR Sleep study done 11/01/2023 results showing obstructive sleep apnea moderate with AHI of 21.1 advised auto CPAP 10-20 cm water] dapagliflozin propanediol (Farxiga) 10 mg PO DAILY fenofibrate nanocrystallized 145 mg PO DAILY flash glucose scanning reader ([employer] Yoselin 14 Day [place]) As directed flash glucose sensor ([employer] Yoselin 14 Day Sensor kit) As directed fluticasone propionate 50 mcg/actuation 2 sprays intranasal DAILY glipizide 10 mg PO BID levothyroxine (Synthroid) 137 mcg PO DAILY lisinopril 30 mg PO BID 90 days metoprolol succinate ER 25 mg PO DAILY 90 days needle (disp) 18 G (BD Regular [employer] [place]) As directed needle (disp) 22 G (Exel Hypodermic [place]) As directed rosuvastatin (Crestor) 20 mg PO DAILY testosterone cypionate 200 mg IM Q2W tirzepatide 7.5 mg (0.5 mL) subcut QWEEK HPI pe HPI Details [facility] Hematology-Oncology Dr. Ambrocio Ophthalmology eyesight and surgery [facility] Urology [facility] gastroenterology [facility] endocrinology FOR[facility]LY [facility], [facility] Medical History Bronchitis Diarrhea Acute bronchitis Cough Adenoma of left adrenal gland Tubular adenoma of colon Upper respiratory infection Colon cancer screening Obesity (BMI 30-39.9) Fatty liver Diabetic neuropathy Hypothyroid Osteoarthritis of knee Hypogonadism Hypercholesterolemia Hypertension Type 2 diabetes mellitus with hyperglycemia Surgical History History of arthroplasty History of surgical removal of meniscus of knee History of thyroidectomy Family History Father Myocardial infarction Melanoma Mother Cancer of lymphatic and hematopoietic tissue Daughter In good health Sister In good health Brother In good health Myocardial infarction Paternal Grandfather Myocardial infarction Social History Household Members: Family Housing: House Alcohol intake: current Alcohol intake frequency: holidays/special occasions only Comment: once a year 1 glass Patient Tobacco Use Status: Never used Tobacco Tobacco use type: Cigarette e-Cigarette/Vaping Use: Never Used Second Hand Smoke Exposure: No service: Yes Current occupational status: employed Current occupational exposures/hazards: No Cognitive needs: No Hearing needs: No Vision needs: Yes Questionnaire Medicare Wellness Checkup [age] What gender do you identify with?: male During the past 4 weeks, how much have you been bothered by emotional problems such as feeling anxious, depressed, irritable, sad or downhearted, and blue?: not at all During the past 4 weeks, has your physical & emotional health limited your social activities with family, friends, neighbors, or groups?: not at all During the past 4 weeks, how much bodily pain have you generally had?: no pain During the past 4 weeks, was someone available to help you if you needed & wanted help?: yes, as much as I wanted During the past 4 weeks, what was the hardest physical activity you could do for at least 2 minutes?: very heavy Can you get to places out of walking distance without help? (For eg., can you travel alone on buses, taxis or drive your car?): Yes Can you go shopping for groceries or clothes without someone's help?: Yes Can you prepare your own meals?: Yes Can you do your housework without help?: Yes Because of any health problems, do you need the help of another person with your personal care needs such as eating, bathing, dressing or getting around the house?: No Can you handle your own money without help?: Yes During the past 4 weeks, how would you rate your health in general?: very good During the past 4 weeks how have things been going for you?: pretty well Are you having difficulties driving your car?: no Do you always fasten your seat belt when you are in a car?: yes, usually During past 4 weeks, have you been bothered by the following: never: Falling or dizzy when standing up, Teeth or denture problems? and Problems using the telephone?, seldom: Trouble eating well? and Tiredness or fatigue? and sometimes: Sexual problems? Have you fallen 2 or more times in the past year?: No Are you afraid of falling?: No Are you a smoker?: no During the past 4 weeks, how many drinks of wine, beer, or other alcoholic beverages did you have?: no alcohol at all Do you exercise for about 20 minutes 3 or more times a week?: yes, some of the time Have you been given information to help with the following?: no: Hazards in your house that might hurt you? How often do you have trouble taking medicines the way you have been told to take them?: I always take medicine as prescribed How confident are you that you can control & manage most of your health problems?: very confident What is your race?: White PHQ-9 Over the last 2 weeks, how often have you been bothered by any of the following problems? 1. Little interest or pleasure in doing things: not at all 2. Feeling down, depressed, or hopeless: not at all 3. Trouble falling or staying asleep, or sleeping too much: several days 4. Feeling tired or having little energy: several days 5. Poor appetite or overeating: not at all 6. Feeling bad about yourself - or that you are a failure or have let yourself or your family down: not at all 7. Trouble concentrating on things, such as reading the newspaper or watching television: not at all 8. Moving or speaking so slowly that other people could have noticed. Or the opposite - being so fidgety or restless that you have been moving around a lot more than usual: not at all 9. Thoughts that you would be better off or of hurting yourself in some way: not at all Total score: 2 Depression Screening Interpretation: Positive Depression Screening Done: Yes 81541 - PHQ-9 Billing: Yes Source: Developed by Drs. Hubert Hernandez, Kay Pitts, Kirk Noel and colleagues, with an educational radha from [employer]. Review of Systems Const Denies poor appetite and Denies weakness Eyes Denies no additional complaints ENT Reports Normal hearing present, Denies dizziness, Denies nasal congestion, Denies tinnitus and Denies sore throat Card Denies chest pain, Denies syncope, Denies rapid heart rate and Denies dyspnea Resp Denies cough and Denies dyspnea GI Denies change in stool character, Reports constipation, Denies diarrhea, Denies nausea and Denies vomiting Denies dysuria and Denies urinary frequency Neuro Reports Normal hearing present, Denies confusion, Denies dizziness, Denies syncope and Denies weakness Psych Denies confusion Physical Exam Vital Signs: Last Vital Signs Temp 97.1 F 06/24/25 08:49 Pulse 76 06/24/25 08:49 BP 118/82 06/24/25 08:49 Pulse Ox 97 06/24/25 08:49 Oxygen Delivery Method Room Air 06/24/25 08:49 BMI result Body Mass Index 32.9 Const General: No confusion Orientation/consciousness: No confusion HEENT Head: Yes normocephalic Ears: external ears normal and TM's normal bilaterally Face and sinus: Yes normal facial exam Mouth: moist mucous membranes Throat: Yes tonsils normal Eyes Conjunctivae: conjunctivae normal Pupils: Equal, round and reactive pupils present and Pupil accommodation reflex normal Direct Ophthalmoscopy: normal light reflex Neck Neck: No lymphadenopathy Thyroid: Thyroid normal Chest Chest palpation & inspection: normal inspection of the chest Resp Effort & Inspection: normal respiratory effort and no audible wheezes Auscultation: clear to auscultation bilaterally, no crackles, no wheezes and lung sounds not diminished Cardio Rate: regular rate Rhythm: regular rhythm Peripheral pulses: radial pulses present and dorsalis pedis present GI Other: declined Palpation (GI): no masses Auscultation: normal bowel sounds and normoactive bowel sounds Rectal Exam - Male: Yes deferred Other: declined Skin General skin exam: no rashes or lesions noted Rashes: no rashes Neuro General: No confusion Cranial nerves: Yes Equal, round and reactive pupils present and Yes Normal hearing present Cognition (Neuro): normal cognition Gait exam (Neuro): Normal gait present Motor exam (neuro): 5/5 motor strength present throughout Deep tendon reflexes (DTR's): Right brachioradialis reflex intensity grade: 2+, Left brachioradialis reflex intensity grade: 2+, Right patellar reflex intensity grade: 2+ and Left patellar reflex intensity grade: 2+ Extrem General: No edema Results AMB Hemoglobin A1c AMB Hemoglobin A1c 6.3 % Last Edit by April Conn CMA on 06/24/25 09:00 Results Reviewed Results Reviewed: Laboratory Last Values Hgb A1c (Clinic) 6.3 % (4.0-6.0) H 06/24/25 08:55 Assessment & Plan Assessment & Plan (1) Annual physical exam: Code(s): Z00.00 - Encounter for general adult medical examination without abnormal findings Plan: Patient is advised to eat healthy, keep well hydrated, keep active and have adequate sleep. (2) Moderate obstructive sleep apnea: Comment: Sleep study done 11/01/2023 results showing obstructive sleep apnea moderate with AHI of 21.1 advised auto CPAP 10-20 cm water Code(s): G47.33 - Obstructive sleep apnea (adult) (pediatric) Plan: Continue to use the CPAP more than 4 hours a night and benefits from this (3) Erythrocytosis: Comment: Secondary to hormone therapy Code(s): D75.1 - Secondary polycythemia Plan: Patient follows up with Hematology-Oncology has therapeutic phlebotomy and on aspirin (4) Type 2 diabetes mellitus with hyperglycemia: Comment: [facility] 11/2022 Code(s): E11.65 - Type 2 diabetes mellitus with hyperglycemia Qualifiers: Diabetes mellitus online media buyer insulin use: without online media buyer use Qualified Code(s): E11.65 - Type 2 diabetes mellitus with hyperglycemia Plan: Decrease the amount of carbohydrate intake, pasta, bread, rice and potatoes are all sugar and that is aside from all the sweet stuff, remember that fruits are good but they are Sweet also. Hemoglobin A1c goal of less than 6.5 patient is on Farxiga 10 mg once a day glipizide 10 mg twice a day tirzepatide 7.5 mg once a week (5) Hypercholesterolemia: Comment: May 2023 LDL is 81 Code(s): E78.00 - Pure hypercholesterolemia, unspecified Plan: Avoid fried foods, chicken skin, eggs, butter margarine, pastries and meat. Be it pork or beef they have a lot of cholesterol August 2024 last blood work LDL goal of less than 100 and triglyceride of less than 150 (6) Hypertension: Code(s): I10 - Essential (primary) hypertension Qualifiers: Hypertension type: essential hypertension Qualified Code(s): I10 - Essential (primary) hypertension Plan: Continue with blood pressure medication. Decrease salt intake and exercise on metoprolol 25 mg once a day lisinopril 30 mg twice a day and amlodipine 5 mg once a day (7) Hypothyroid: Comment: Thyroidectomy nodule 2018 no cancer Code(s): E03.9 - Hypothyroidism, unspecified Qualifiers: Hypothyroidism type: acquired Qualified Code(s): E03.9 - Hypothyroidism, unspecified Plan: Continue with thyroid medication (8) Hypogonadism: Plan: On testosterone (9) Obesity (BMI 30-39.9): Code(s): E66.9 - Obesity, unspecified Plan: Diet and exercise Plan History of Present Illness The patient is a 64-year-old male presenting for a follow-up visit for management of multiple chronic conditions and wellness. He has a history of obesity, diabetes mellitus, hypertension, hypercholesterolemia, and hypothyroidism. Regarding his diabetes, his hemoglobin A1c has shown significant improvement, decreasing to 6.3% from 8.1% in February. He reports rare episodes of hypoglycemia. His medication regimen includes Farxiga 10 mg daily, glipizide 10 mg twice daily, and tirzepatide 7.5 mg once weekly. The patient has secondary erythrocytosis related to hypoxia from moderate obstructive sleep apnea, for which he uses a CPAP machine. He follows up with hematology/oncology and undergoes therapeutic phlebotomy every 3 months. For his history of tubular adenoma of the colon discovered in June 2022, he underwent a laparoscopic-assisted segmental colectomy in August 2022. He believes he had a follow-up colonoscopy a year later, in 2023, and is on a 2-year surveillance plan, though records of the latest procedure are not available. Musculoskeletal history includes left knee pain from a suspected meniscus tear about two years ago, which he manages conservatively with a massager while postponing a potential future knee replacement. He had a right knee arthroplasty in 2019, which was preceded by a meniscectomy on the same knee in 2014. Other history includes a right middle/lower lobe lung nodule found in July 2022. His cholesterol was last checked in August 2024 with an LDL of 46, and his last thyroid test was within normal limits at 0.7. The patient's weight has fluctuated; an 8-pound weight loss was noted in February, but his weight has since been stable to slightly increased. The patient denies any use of alcohol, cigarettes, or recreational drugs. Health Maintenance A request for fasting blood work, to include a prostate-specific antigen (PSA) test, will be provided for the patient to complete in 3 months. The patient has an upcoming eye exam in October. He was counseled on getting the shingles vaccine. A follow-up visit is scheduled for 3 months, with the potential to extend to 6-month intervals if his conditions remain well-controlled. The patient was advised to avoid NSAIDs such as ibuprofen due to his kidney function. Social History - Alcohol Use: The patient denies drinking alcohol. - Tobacco Use: The patient denies ever smoking. - Recreational Drug Use: The patient denies any recreational drug use. - Diet: He reports that he has cut back on his food intake. - Functional Status: The patient denies falls or balance issues, but his ability to climb stairs is limited by knee pain. Review of Systems - Constitutional: Denies fevers, syncope, or dizziness. - HEENT: Reports 35% hearing loss in one ear but denies tinnitus. Denies swallowing problems. - Cardiovascular: Denies chest pain, heaviness, or discomfort. - Respiratory: Denies waking up short of breath or dyspnea when climbing stairs. - Gastrointestinal: Reports occasional constipation but denies it is severe enough for laxatives. Denies nausea or vomiting. - Genitourinary: Reports nocturia 2-3 times per night, which is his baseline. - Endocrine: Reports rare episodes of jitteriness or sweating consistent with hypoglycemia. - Musculoskeletal: Reports pain on the posterior side of his left knee. - Neurological: Reports intermittent tingling in his feet. Denies headaches or balance issues. Physical Exam General: Cooperative, healthy appearing, comfortable, no acute distress and well developed Orientation: Patient oriented x3 Limitations: No limitations Head: Normal to inspection Ears: Hearing loss of 35% in one eardrum, no hearing aids recommended Nose: Normal external nose present Face and sinus: Normal facial exam Eyes: Appearance normal, both eyes and all related structures Neck: Normal visual inspection and Yes full ROM Respiratory: Normal respiratory effort and able to speak in complete sentences. Clear to auscultation bilaterally Cardiovascular: Regular rate and rhythm. Normal S1 and S2 GI: Normal to inspection. Soft to palpation and nontender Skin: No rashes or lesions noted, but large bruises present Neuro: Patient oriented x3 Extremities: Normal to inspection, but reports pain in the left knee, history of meniscus tear and MCL issues, due for knee replacement in the future. Areas of the foot with reduced sensation noted. Results - Labs (June 23): - CBC: Normal blood count, hemoglobin 14.2 g/dL, normal white blood cell and platelet counts. - CMP: Electrolytes normal, creatinine 1.22 mg/dL, blood glucose 95 mg/dL, liver function tests normal. - Hemoglobin A1c: 6.3%. - TSH: 0.7 mIU/L. - Labs (August 2024): - Lipid Panel: LDL 46 mg/dL. Plan Patient was informed and verbally consented to the use of an ambient scribe for clinic note documentation during this visit. 1. Diabetes Mellitus Type 2 The patient's hemoglobin A1c has improved significantly to 6.3%, meeting the goal of less than 6.5%. He will continue his current medications of Farxiga 10 mg daily and glipizide 10 mg twice daily. Due to a plateau in weight loss, his dose of tirzepatide will be increased from 7.5 mg to 10 mg weekly. The patient was counseled that if he experiences symptoms of hypoglycemia, the glipizide dose may need to be reduced. 2. Secondary Erythrocytosis The patient will continue to follow up with hematology/oncology for erythrocytosis secondary to hypoxia from obstructive sleep apnea. He will continue with a plan of therapeutic phlebotomy every 3 months and daily aspirin. 3. Essential Hypertension The patient will continue his current antihypertensive regimen, which includes metoprolol 25 mg once a day, lisinopril 30 mg twice a day, and amlodipine 5 mg once a day. 4. Hypercholesterolemia With a last LDL of 46 mg/dL, the patient is meeting his goal of less than 100. He will continue his current medications, including rosuvastatin and fenofibrate. 5. Obstructive Sleep Apnea The patient reports benefiting from his CPAP and will continue to use it for more than 4 hours per night. 6. Hypothyroidism The patient's last TSH was within normal limits at 0.7. He will continue his current thyroid medication, levothyroxine. 7. Diabetic Peripheral Neuropathy The physical exam revealed areas of diminished sensation in the feet. The patient was counseled on the importance of checking his feet daily for any wounds, as he may not feel them. He declined a referral to a center machine operator at this time. 8. Left Knee Pain The patient reports chronic posterior left knee pain, which he attributes to a past meniscus tear. He is managing his symptoms conservatively with a massager and is trying to hold off on surgery. Discussion Notes I reviewed the patient's recent lab work from June 23, highlighting the dramatic improvement in his HbA1c to 6.3% from 8.1% in February. I noted his blood count, electrolytes, and kidney function are stable, and I advised him to remain well-hydrated and avoid NSAIDs like ibuprofen to protect his kidneys. I informed the patient that my physical exam revealed areas on his feet with decreased sensation, which is a sign of nerve damage from diabetes. I stressed the importance of him checking his feet daily for any cuts or wounds, as he might not feel them, which could lead to serious complications; he acknowledged this and stated he already performs nightly checks. He declined a referral to podiatry at this time. We discussed his weight management, and he reported that his weight loss has become stagnant. He requested to increase his tirzepatide dose, and we agreed to escalate it to 10 mg weekly. I advised him that if he starts experiencing more frequent low blood sugar symptoms, we will need to reduce his glipizide dose. For health maintenance, I recommended he get the shingles vaccine. I provided a lab request for him to complete in 3 months, which will include a PSA test, and scheduled a follow-up visit for that time. I explained that if his conditions remain well-controlled, we can extend our follow-up interval to every six months. Patient Instructions - You will increase your Tirzepatide (Mounjaro) injection to 10 mg once a week. - If you feel shaky, sweaty, or jittery, you might have low blood sugar. If this happens, please let us know, as we may need to lower the dose of your glipizide medication. - Continue all your other current medications for blood pressure, cholesterol, and thyroid as prescribed. - Continue to use your CPAP machine for more than 4 hours each night for your sleep apnea. - Continue with your scheduled therapeutic phlebotomy appointments every 3 months. - It is very important to check your feet every day for any cuts, sores, or changes in the skin because you have some nerve damage and may not feel an injury. Do not go barefoot. - Avoid taking pain relievers like Ibuprofen (Advil, Motrin) and naproxen (Aleve) to help protect your kidneys. - Get your new fasting bloodwork done in about 3 months. This will include a test for your prostate. - Consider getting the shingles vaccine (Shingrix), which comes in two shots and is available at your pharmacy. - Keep your eye exam appointment scheduled for October. - Schedule a follow-up appointment to see me in 3 months after your lab work is completed. Orders: Orders AMB Hemoglobin A1c Today Z13.9 - Encounter for screening, unspecified Thyroid Stimulating Hormone 3 Months E11.65 - Type 2 diabetes mellitus with hyperglycemia Ferritin 3 Months E11.65 - Type 2 diabetes mellitus with hyperglycemia UA CC w/rflx Micro + Cult 3 Months E11.65 - Type 2 diabetes mellitus with hyperglycemia, R30.0 - Dysuria Complete Blood Count Auto Diff 3 Months E11.65 - Type 2 diabetes mellitus with hyperglycemia Comprehensive Met. Panel 3 Months E11.65 - Type 2 diabetes mellitus with hyperglycemia Free T4 (Free Thyroxine) 3 Months E11.65 - Type 2 diabetes mellitus with hyperglycemia Vitamin B12 and Folate 3 Months E11.65 - Type 2 diabetes mellitus with hyperglycemia Lipid Panel 3 Months E11.65 - Type 2 diabetes mellitus with hyperglycemia, E78.00 - Pure hypercholesterolemia, unspecified Microalbumin, Random (w Creat) 3 Months E11.65 - Type 2 diabetes mellitus with hyperglycemia Creatinine Urine 3 Months E11.65 - Type 2 diabetes mellitus with hyperglycemia Hemoglobin A1c 3 Months E11.65 - Type 2 diabetes mellitus with hyperglycemia Reticulocyte Count 3 Months E11.65 - Type 2 diabetes mellitus with hyperglycemia Prostate Specific Antigen Scr 3 Months E11.65 - Type 2 diabetes mellitus with hyperglycemia Magnesium 3 Months E11.65 - Type 2 diabetes mellitus with hyperglycemia Medications: Changed From tirzepatide 7.5 mg (0.5 mL) subcut QWEEK 2 mL 4RF E11.65 - Type 2 diabetes mellitus with hyperglycemia To tirzepatide 10 mg (0.5 mL) subcut QWEEK 2 mL 4RF E11.65 - Type 2 diabetes mellitus with hyperglycemia Quality Reporting (2019) Depression/Bipolar (159/160/161/177) PHQ-9: Total score: 2 Coding Level of Care Code Medicare Subsequent (G0439) Diagnoses Annual physical exam Z00.00 Moderate obstructive sleep apnea G47.33 Erythrocytosis D75.1 Type 2 diabetes mellitus with hyperglycemia, without long-term current use of insulin E11.65 Diabetes mellitus care home insulin use: without care home use Hypercholesterolemia E78.00 Essential hypertension I10 Hypertension type: essential hypertension Acquired hypothyroidism E03.9 Hypothyroidism type: acquired Hypogonadism Obesity (BMI 30-39.9) E66.9 Additional Codes PHQ-9 - 51514 - PHQ-9 Billing: Yes ([id number])
[2025-06-24 08:55] VITALS: BMI 32.9
== END 2025-06-24 09:39 | disposition home or self-care (01) ==
LOC: HO.HMCH 08:32
PROVIDERS: PCP Internal Medicine; Visit Provider Internal Medicine
DX: Z00.00 Encounter for general adult medical examination without abnormal findings (principal); G47.33 Obstructive sleep apnea (adult) (pediatric); E11.65 Type 2 diabetes mellitus with hyperglycemia; D75.1 Secondary polycythemia; E78.00 Pure hypercholesterolemia, unspecified; I10 Essential (primary) hypertension; E03.9 Hypothyroidism, unspecified; E66.9 Obesity, unspecified

== ENCOUNTER → 2025-06-24 08:31 | Outpatient (BNVA) | payer MEDICARE, OTHER, SELFPAY | PROVIDERS: PCP Internal Medicine; Visit Provider Internal Medicine | DX: E11.65 Type 2 diabetes mellitus with hyperglycemia (principal); Z13.31 Encounter for screening for depression | CPT/HCPCS: 83036; 96127 ==